=== PATIENT | female | born 1935 | race Caucasian/White ===

== ENCOUNTER 2016-09-02 10:31 | Observation (INO) | payer MEDICARE, BC ==
[~2016-09-02] VITALS: Ht 154.9 cm; Wt 60.0 kg
[2016-09-02] VITALS (10 sets, daily range): BP systolic 154–176; BP diastolic 75–82; PULSE 72–85; RESP 15–20; TEMP 96.5–98.8; O2SAT 93–98
[2016-09-02] MEDS ORDERED: SIMV5TAB3 PO (10:45)
[2016-09-02] MEDS ORDERED: SODIUM CHLORIDE 0.9% FLUSH 5 ML FLUSH IVF PRN (10:45)
[2016-09-02] MEDS ORDERED: LEVO25TA4 PO (10:45)
[2016-09-02] MEDS ORDERED: VENL25TA PO (10:45)
[2016-09-02] MEDS ORDERED: TETANUS/DIPHTHERIA TOXOID ADULT 0.5 ML VIAL IM ONE (10:45)
[2016-09-02] MEDS ORDERED: ASPI81CH CHEW (10:45)
[2016-09-02 11:00] LABS: AUTOMATED NEUTROPHIL # 4.1 TH/MM3 (1.8-7.7); BASOPHIL % 0.2 % (0.0-2.0); EOSINOPHIL % 0.3 % (0.0-4.0); HEMATOCRIT 33.8 % (35.0-46.0); HEMO FLAGS DIFF FINAL; LYMPH % 25.4 % (9.0-44.0); LYMPHOCYTE # 1.6 TH/MM3 (1.0-4.8); MEAN CELL VOLUME 83.8 FL (80.0-100.0); MEAN CORPUSCULAR HEMOGLOBIN 27.3 PG (27.0-34.0); MEAN CORPUSCULAR HGB CONC 32.5 % (32.0-36.0); MONO % 11.2 % (0.0-8.0); NEUT % 62.9 % (16.0-70.0); PLATELET COUNT 213 TH/MM3 (150-450); RED BLOOD COUNT 4.03 MIL/MM3 (4.00-5.30); RED CELL DISTRIBUTION WIDTH 14.4 % (11.6-17.2); WHITE BLOOD COUNT 6.5 TH/MM3 (4.0-11.0)
--- NOTE | 2016-09-02 11:06 | PD ---
HPI Chief Complaint: Fall Time Seen by Provider: 10:34 Travel History International Travel<30 days: No Contact w/Intl Traveler<30days: No Traveled to known affect area: No History of Present Illness HPI Is an 81-year-old female presents emergency department after slip and fall at home. Patient states she lost her balance falling backwards impacting the posterior aspect of her head. She is also complaining of chest pain as well as low back pain. She went to an urgent care facility where she had an EKG performed which was told her as normal. She presented here for further evaluation at the insistence of that physician. She denies any loss of consciousness. Endorses mild headache, no nausea no vomiting no visual changes no focal weakness. PFSH Past Medical History Anxiety: Yes Depression: Yes Diminished Hearing: No Thyroid Disease: Yes Past Surgical History Surgical History: No Previous Surgery Social History Alcohol Use: No Tobacco Use: No Substance Use: No Allergies-Medications (Allergen,Severity, Reaction): Coded Allergies: No Known Allergies (Unverified , 09/02/16) Reported Meds & Prescriptions Reported Meds & Active Scripts Active Reported Simvastatin 5 Mg Tab 5 Mg PO DAILY Aspirin 81 Mg Chew 81 Mg CHEW DAILY Effexor (Venlafaxine HCl) 25 Mg Tab 25 Mg PO Q12H Levothyroxine (Levothyroxine Sodium) 25 Mcg Tab 25 Mcg PO DAILY Review of Systems Except as stated in HPI: all other systems reviewed are Neg Physical Exam Narrative GENERAL: WD/WN in nad SKIN: Warm and dry. HEAD: No steel's sign no racoons eyes. There is abrasiion and hematoma of the posterior scalp. Normocephalic. EYES: Pupils equal and round. No scleral icterus. No injection or drainage. ENT: No nasal bleeding or discharge. Mucous membranes pink and moist. NECK: Trachea midline. No JVD. CARDIOVASCULAR: Regular rate and rhythm. 2+ bilaterally equal bulses x 4 ext. RESPIRATORY: No accessory muscle use. Clear to auscultation. Breath sounds equal bilaterally. GASTROINTESTINAL: Abdomen soft, non-tender, nondistended. Hepatic and splenic margins not palpable. MUSCULOSKELETAL: Extremities without clubbing, cyanosis, or edema. No obvious deformities. NEUROLOGICAL: Awake and alert. No obvious cranial nerve deficits. Motor grossly within normal limits. Five out of 5 muscle strength in the arms and legs. Normal speech. PSYCHIATRIC: Appropriate mood and affect; insight and judgment normal. Data Data Last Documented VS Vital Signs Date Time Temp Pulse Resp B/P Pulse Ox O2 Delivery O2 Flow Rate FiO2 09/02/16 12:28 76 16 163/75 94 Room Air 09/02/16 10:31 98.2 Orders Electrocardiogram (09/02/16 10:42) Ckmb (Isoenzyme) Profile (09/02/16 10:42) Complete Blood Count With Diff (09/02/16 10:42) Comprehensive Metabolic Panel (09/02/16 10:42) Magnesium (Mg) (09/02/16 10:42) Prothrombin Time / Inr (Pt) (09/02/16 10:42) Act Partial Throm Time (Ptt) (09/02/16 10:42) Troponin I (09/02/16 10:42) Chest, Single Ap (09/02/16 10:42) Ecg Monitoring (09/02/16 10:42) Bilateral Bp Monitoring (09/02/16 10:42) Iv Access Insert/Monitor (09/02/16 10:42) Oximetry (09/02/16 10:42) Oxygen Administration (09/02/16 10:42) Sodium Chloride 0.9% Flush (Ns Flush) (09/02/16 10:45) Ct Brain W/O Iv Contrast(Rout) (09/02/16 ) Ct Cerv Spine W/O Contrast (09/02/16 ) Ct Lumb Spine W/O Contrast (09/02/16 ) Tetanus/Diphtheria Tox Adult (Tetanus/Di (09/02/16 10:45) CKMB (09/02/16 10:45) CKMB% (09/02/16 10:45) Spine,Cervical-Flex & Ext Only (09/02/16 ) Aspirin Chew (Aspirin Chew) (09/02/16 13:15) Admit Order (Ed Use Only) (09/02/16 ) Labs Laboratory Tests Test 09/02/16 10:45 White Blood Count 6.5 TH/MM3 Red Blood Count 4.03 MIL/MM3 Hemoglobin 11.0 GM/DL Hematocrit 33.8 % Mean Corpuscular Volume 83.8 FL Mean Corpuscular Hemoglobin 27.3 PG Mean Corpuscular Hemoglobin 32.5 % Concent Red Cell Distribution Width 14.4 % Platelet Count 213 TH/MM3 Mean Platelet Volume 6.8 FL Neutrophils (%) (Auto) 62.9 % Lymphocytes (%) (Auto) 25.4 % Monocytes (%) (Auto) 11.2 % Eosinophils (%) (Auto) 0.3 % Basophils (%) (Auto) 0.2 % Neutrophils # (Auto) 4.1 TH/MM3 Lymphocytes # (Auto) 1.6 TH/MM3 Monocytes # (Auto) 0.7 TH/MM3 Eosinophils # (Auto) 0.0 TH/MM3 Basophils # (Auto) 0.0 TH/MM3 CBC Comment DIFF FINAL Differential Comment Prothrombin Time 11.2 SEC Prothromb Time International 1.0 RATIO Ratio Activated Partial 25.7 SEC Thromboplast Time Sodium Level 132 MEQ/L Potassium Level 3.8 MEQ/L Chloride Level 96 MEQ/L Carbon Dioxide Level 28.9 MEQ/L Anion Gap 7 MEQ/L Blood Urea Nitrogen 9 MG/DL Creatinine 0.67 MG/DL Estimat Glomerular Filtration 84 ML/MIN Rate Random Glucose 85 MG/DL Calcium Level 8.5 MG/DL Magnesium Level 2.0 MG/DL Total Bilirubin 0.2 MG/DL Aspartate Amino Transf 33 U/L (AST/SGOT) Alanine Aminotransferase 30 U/L (ALT/SGPT) Alkaline Phosphatase 80 U/L Total Creatine Kinase 588 U/L Creatine Kinase MB 25.2 NG/ML Creatine Kinase MB % 4.3 % Troponin I LESS THAN 0.02 NG/ML Total Protein 6.6 GM/DL Albumin 3.4 GM/DL MDM Medical Decision Making Medical Screen Exam Complete: Yes Emergency Medical Condition: Yes Interpretation(s) EKG shows normal sinus rhythm with normal axis and normal R-wave progression. Left atrial enlargement, no concerning ST T changes, intervals within normal limits. This borderline EKG. Differential Diagnosis Fall, syncope, chest pain, chest injury, rhabdomyolysis. Narrative Course Patient roomed in ED, quite atypical CP. Ct head negative. TD given. Her CKMB % is slightly elevated. Discussed with her and she is agreeable for obs for cardiac trending at a minimum. Further management by inpatient team. Last 24 hours Impressions Chest X-Ray 09/02/16 1042 Signed Impressions: Service Date/Time: Friday, September 02, 2016 10:52 - CONCLUSION: Basilar hypoaeration with mild right basilar airspace disease. No other significant abnormality. Nomi Tyson MD Lumbar Spine CT 09/02/16 0000 Signed Impressions: Service Date/Time: Friday, September 02, 2016 11:17 - CONCLUSION: 1. Mild sclerosis at the L4 vertebral body with minimal loss of height which may suggest some underlying compression. An acute fracture is not seen. Significant loss of height is not clearly seen. 2. Degenerative change throughout the lumbar spine as described above. This is asymmetric being worse on the left at the upper and mid lumbar spine worse on the right at the lower lumbar spine. Patient does have a prominent dextrocurvature of the lumbar spine with some compensatory mild levocurvature of the lower lumbar spine. Mike Ruiz MD Head CT 09/02/16 0000 Signed Impressions: Service Date/Time: Friday, September 02, 2016 11:11 - CONCLUSION: 1. No intracranial abnormalities seen. 2. Posterior scalp injury. Mike Ruiz MD Cervical Spine X-Ray 09/02/16 0000 Signed Impressions: Service Date/Time: Friday, September 02, 2016 12:17 - CONCLUSION: Degenerative change throughout. No abnormal motion is seen. Mike Ruiz MD Cervical Spine CT 09/02/16 0000 Signed Impressions: Service Date/Time: Friday, September 02, 2016 11:11 - CONCLUSION: Extensive degenerative changes. Spinal stenosis is moderate at C4-C5 level. There is no evidence for fracture. Given the amount of degenerative changes and reversal of subluxation controlled flexion extension films could be used to exclude motion. Daniel Cabello MD FACR Diagnosis Primary Impression: Chest pain Qualified Code: R07.89 - Other chest pain Additional Impressions: Closed head injury Back pain Admitting Information Admitting Physician Requests: Observation Condition: Stable Prince Samuel MD Sep 02, 2016 11:06
[2016-09-02 11:10] LABS: APTT (PATIENT) 25.7 SEC (24.3-30.1); PROTHROMBIN TIME - PATIENT 11.2 SEC (9.8-11.6)
--- NOTE | 2016-09-02 11:13 | RADRPT ---
EXAM DATE/TIME: 09/02/2016 10:52 [facility] COMPARISON: No previous studies available for comparison. INDICATIONS : Chest Pain MEDICAL HISTORY : None. SURGICAL HISTORY : None. ENCOUNTER: Initial ACUITY: 1 day PAIN SCORE: 5/10 LOCATION: Bilateral chest FINDINGS: Lungs are hypoaerated. There is minimal airspace disease in the right base. There is no significant c onsolidation. Heart and mediastinal structures are unremarkable. CONCLUSION: Basilar hypoaeration with mild right basilar airspace disease. No other significant abnormality. Nomi Tyson MD on September 02, 2016 at 11:11 Board Certified Radiologist. This report was verified electronically.
[2016-09-02 11:21] LABS: ANION GAP 7 MEQ/L (5-15); AST (GOT) 33 U/L (15-37); BICARBONATE 28.9 MEQ/L (21.0-32.0); BLOOD UREA NITROGEN 9 MG/DL (7-18); CHLORIDE 96 MEQ/L (98-107); GLOMERULAR FILTRATION RATE 84 ML/MIN (>89); POTASSIUM 3.8 MEQ/L (3.5-5.1); SODIUM (NA) 132 MEQ/L (136-145)
[2016-09-02 11:26] LABS: ALKALINE PHOSPHATASE 80 U/L (45-117); ALT (GPT) 30 U/L (10-53); CREATINE KINASE 588 U/L (26-192); TOTAL BILIRUBIN ADULT 0.2 MG/DL (0.2-1.0)
--- NOTE | 2016-09-02 11:34 | RADRPT ---
EXAM DATE/TIME: 09/02/2016 11:11 [facility] COMPARISON: No previous studies available for comparison. INDICATIONS : Fall this morning. Laceration to posterior head. RADIATION DOSE: 39.34 CTDIvol (mGy) MEDICAL HISTORY : Thyroid disease. SURGICAL HISTORY : None. ENCOUNTER: Initial ACUITY: 1 day PAIN SCALE: 6/10 LOCATION: cranial TECHNIQUE: Multiple contiguous axial images were obtained of the head. Using automated exposure control and adj ustment of the mA and/or kV according to patient size, radiation dose was kept as low as reasonably a chievable to obtain optimal diagnostic quality images. FINDINGS: CEREBRUM: The ventricles are normal for age. No evidence of midline shift, mass lesion, hemorrhage or acute in farction. No extra-axial fluid collections are seen. POSTERIOR FOSSA: The cerebellum and brainstem are intact. The 4th ventricle is midline. The cerebellopontine angle i s unremarkable. EXTRACRANIAL: The visualized portion of the orbits is intact. There is soft tissue swelling of the posterior upper scalp. SKULL: The calvaria is intact. No evidence of skull fracture. CONCLUSION: 1. No intracranial abnormalities seen. 2. Posterior scalp injury. Mike Ruiz MD on September 02, 2016 at 11:31 Board Certified Radiologist. This report was verified electronically.
[2016-09-02 11:38] LABS: CKMB 25.2 NG/ML (0.5-3.6)
--- NOTE | 2016-09-02 11:47 | RADRPT ---
EXAM DATE/TIME: 09/02/2016 11:11 [facility] COMPARISON: No previous studies available for comparison. INDICATIONS: Fall this morning. Laceration to posterior head. RADIATION DOSE: 20.38 CTDIvol (mGy) MEDICAL HISTORY: Thyroid disease. SURGICAL HISTORY: None. ENCOUNTER: Initial ACUITY: 1 day PAIN SCALE: 1/10 LOCATION: Neck TECHNIQUE: Volumetric scanning of the cervical spine was performed. Multiplanar reconstructions in the sagittal, coronal and oblique axial planes were performed. Using automated exposure control and adjustment o f the mA and/or kV according to patient size, radiation dose was kept as low as reasonably achievable to obtain optimal diagnostic quality images. FINDINGS: There is straightening of the normal cervical lordosis. Alignment is otherwise anatomic. C1 and C2 are intact. C2-C3: The bony spinal canal is normal in size. No evidence of disc bulge or herniation. The neural forami na are bilaterally patent. C3-C4: There is some moderate uncinate ridging at C3-C4 with bilateral neural foramina encroachment worse on the left than the right. C4-C5: There is moderate uncinate ridging present with bilateral neural foramina encroachment. There is mod erate spinal stenosis. C5-C6: Moderate spinal stenosis is evident. There is moderate right-sided neural foramina encroachment. C6-C7: Mild uncinate ridging is present with mild bilateral neural foramina encroachment. C7-T1: Mild uncinate ridging is present without spinal stenoses. CONCLUSION: Extensive degenerative changes. Spinal stenosis is moderate at C4-C5 level. There is no evidence fo r fracture. Given the amount of degenerative changes and reversal of subluxation controlled flexion extension joanne ms could be used to exclude motion. Daniel Cabello MD FACR on September 02, 2016 at 11:39 Board Certified Radiologist. This report was verified electronically.
--- NOTE | 2016-09-02 12:22 | RADRPT ---
EXAM DATE/TIME: 09/02/2016 12:17 [facility] COMPARISON: No previous studies available for comparison. INDICATIONS : Neck pain from fall. MEDICAL HISTORY : None. SURGICAL HISTORY : None. ENCOUNTER: Initial ACUITY: 1 day PAIN SCORE: 6/10 LOCATION: Bilateral lower neck region. FINDINGS: Flexion and extension views of the cervical spine were performed. The alignment of the cervical vert ebral bodies is maintained in flexion and extension and there is no evidence of subluxation. The pre vertebral soft tissues are normal in thickness. There is disc space narrowing at the C3-C4 through C7 -T1 levels. CONCLUSION: Degenerative change throughout. No abnormal motion is seen. Mike Ruiz MD on September 02, 2016 at 12:18 Board Certified Radiologist. This report was verified electronically.
--- NOTE | 2016-09-02 12:32 | RADRPT ---
EXAM DATE/TIME: 09/02/2016 11:17 [facility] COMPARISON: No previous studies available for comparison. INDICATIONS: Fall this morning. Complains of lower back pain. RADIATION DOSE: 35.86 CTDIvol (mGy) MEDICAL HISTORY: Thyroid disease. SURGICAL HISTORY: None. ENCOUNTER: Initial ACUITY: 1 day PAIN SCALE: 6/10 LOCATION: Lumbar TECHNIQUE: Volumetric scanning of the lumbar spine was performed. Multiplanar reconstructions in the sagittal, coronal and oblique axial planes were performed. Using automated exposure control and adjustment of the mA and/or kV according to patient size, radiation dose was kept as low as reasonably achievable t o obtain optimal diagnostic quality images. FINDINGS: VERTEBRAE: There is sclerosis seen at the L4 vertebral body. There is minimal loss of height. An actual acute fracture line is not clearly seen. Some degree of compression however may be present. The remaining lumbar vertebral bodies are normal in height. There is asymmetric sclerosis seen at the left side o f the upper lumbar spine and at the right side of the lower lumbar spine secondary to a prominent dex trocurvature of the thoracic spine and compensatory levocurvature of the lower lumbar spine. T11-T12: There is asymmetric disc bulge being worse on the right causing a mild impression on the anterior rig ht side of the thecal sac. The disc space is narrowed. There is a vacuum phenomenon. There is some narrowing of the right neural foramina secondary to the asymmetric disc bulge. T12-L1: Disc space is narrowed, there is a vacuum phenomenon. A significant impression on the thecal sac is not seen. The neural foramina are grossly intact. L1-L2: Disc space is narrowed, there is a vacuum phenomenon. A significant impression on the thecal sac is not seen. There is moderate facet hypertrophy especially on the left. There is some narrowing of th e left neural foramina. The right neural foramina appears patent. L2-L3: Disc space is narrowed, there is mild diffuse disc bulge. There is moderate facet hypertrophy. Ther e is some narrowing of the left neural foramina. The disc bulge and hypertrophic change is asymmetri c and worse on the left. L3-L4: Disc space is narrowed, there is a vacuum phenomenon. There is mild diffuse disc bulge. There is mo derate facet hypertrophy. The neural foramina are grossly intact. L4-L5: Disc space is narrowed, there is a vacuum phenomenon. There is mild diffuse disc bulge. There is mo derate to severe facet hypertrophy. The facet hypertrophy does cause narrowing of the right lateral recess region and right neural foramina. L5-S1: Disc space is narrowed, there is a vacuum phenomenon. There is mild diffuse disc bulge. There is se bambi facet hypertrophy being worse on the right. There is narrowing of the right neural foramina. T he left neural foramina appears patent. CONCLUSION: 1. Mild sclerosis at the L4 vertebral body with minimal loss of height which may suggest some underl adrian compression. An acute fracture is not seen. Significant loss of height is not clearly seen. 2. Degenerative change throughout the lumbar spine as described above. This is asymmetric being wor se on the left at the upper and mid lumbar spine worse on the right at the lower lumbar spine. Patie nt does have a prominent dextrocurvature of the lumbar spine with some compensatory mild levocurvatur e of the lower lumbar spine. Mike Ruiz MD on September 02, 2016 at 12:04 Board Certified Radiologist. This report was verified electronically.
[2016-09-02] MEDS ORDERED: ASPIRIN 81 MG CHEW TAB CHEW ONE (13:15)
--- NOTE | 2016-09-02 14:07 | HHI.HP ---
[facility] Service Family Medicine Primary Care Physician Constanza (Jose Ramon) MD Shadi Admission Diagnosis CP/Fall Diagnoses: International Travel<30 Days: No Contact w/Intl Traveler<30days: No Known Affected Area: No History of Present Illness 81 yo F presents to the ED with a fall at home this morning. States that she was sleeping normally this morning when she woke up at 4:30 this morning and got up to use the bathroom. She states that she walked several steps to the door of her bedroom and lost her balance and fell backwards and hit her head on the ground. She attributes the fall to several factors: that she was wearing slippers that are too big, the room was dark, and she was turning away from the door when she fell. She hit the posterior aspect of her head, her right arm, and the right side of her face on the ground and had some bleeding from the back of the head. The bleeding did not stop and she then went to the Urgent Care at around 8 am. She endorses some anterior chest discomfort with deep breathing. This started when she arrived to the hospital and did not have this prior to falling. She also endorses a stiff upper back. She states that she sometimes feels dizzy when she gets up from bed but did not feel dizzy this morning. She denies loss of consciousness, denies palpitations, denies headache. She has had previous falls in the past - last month she fell while taking out the trash and again about 6 months ago when bending down to unplug a tablet. At that time, she fell backwards as well. She has had "issues" with her balance recently but does not use any assistive devices to ambulate. She was seen at her PCP office 3 days ago and was told she had a UTI due to urinary frequency with small amount of urine. She was given a Rx for an antibiotic, took it to her pharmacy ([facility] on [address]) but never picked up the prescription. She denies dysuria or urinary frequency at this time. (Shauna Yen MD R1) Review of Systems Constitutional: DENIES: Fatigue Eyes: DENIES: Blurred vision, Double Vision Respiratory: COMPLAINS OF: Shortness of breath, DENIES: Apneas, Cough, Wheezing, Sputum production Cardiovascular: COMPLAINS OF: Chest pain, DENIES: Palpitations, Syncope, Dyspnea on Exertion Gastrointestinal: DENIES: Abdominal pain, Black stools, Bloody stools, Constipation, Diarrhea, Nausea, Vomiting, Difficulty Swallowing Genitourinary: COMPLAINS OF: Urinary frequency, Urgency Musculoskeletal: COMPLAINS OF: Stiffness, Back pain, DENIES: Joint pain, Muscle aches, Neck pain Integumentary: DENIES: Rash Hematologic/lymphatic: DENIES: Bruising Neurologic: COMPLAINS OF: Poor Balance, DENIES: Headache Psychiatric: COMPLAINS OF: Anxiety, DENIES: Confusion, Depression (Shauna Yen MD R1) Past Family Social History Past Medical History Hypothyroid Hyperlipidemia Depression Osteoarthritis Seasonal allergies Schizophrenia (per the ) GERD Past Surgical History Umbilical hernia repair - Reported Medications Reported Meds & Active Scripts Active Reported Simvastatin 5 Mg Tab 5 Mg PO DAILY Aspirin 81 Mg Chew 81 Mg CHEW DAILY Effexor (Venlafaxine HCl) 25 Mg Tab 25 Mg PO Q12H Levothyroxine (Levothyroxine Sodium) 25 Mcg Tab 25 Mcg PO DAILY (Shauna Yen MD R1) Allergies: Coded Allergies: No Known Allergies (Unverified , 09/02/16) Family History Mother - from TB at age 29 Father - from [place] in 1983 (age 67) Social History Alcohol: denies - former wine drinker, quit due to medications Tobacco: denies - former smoker quit 1993 (former 1ppd x "long time") Illicit drugs: jensen Lives at home with her - Condo - ground floor with 1 stair She has been independent with her ADLs Dr. Dumont - psychiatry music library assistant Dr. Bandar Hsu - primary care CODE STATUS: Do Not Resuscitate - Do Not Intubate Has Living Will (Shauna Yen MD R1) Physical Exam Vital Signs Vital Signs Date Time Temp Pulse Resp B/P Pulse Ox O2 Delivery O2 Flow Rate FiO2 09/02/16 12:28 76 16 163/75 94 Room Air 09/02/16 10:41 94 Room Air 09/02/16 10:41 94 Room Air 09/02/16 10:41 78 16 94 Room Air 09/02/16 10:31 98.2 72 15 176/79 94 Physical Exam GENERAL: Pleasant, elderly appearing female in no obvious distress, eating upon entry to room. SKIN: Small amount of scaling/dry skin between toes. No obvious rashes. Ecchymosis in large patch noted on posterior forearm without skin breakdown. HEAD: Right posterior parietal area with small laceration (3mm) with mild edema , no obvious step-off or crepitus. Bruise 0.5cm noted on left zygomatic arch- nontender with no evidence of underlying fracture. EYES: Pupils equal round and reactive. Scleral clear, no subconjunctival hemorrhage. Extraocular motions intact. No scleral icterus. No injection or drainage. NECK: Trachea midline. No JVD or lymphadenopathy. Supple, nontender, no meningeal signs. CARDIOVASCULAR: Regular rate and rhythm without murmurs, gallops, or rubs. RESPIRATORY: Clear to auscultation. Breath sounds equal bilaterally. No wheezes , rales, or rhonchi. GASTROINTESTINAL: Abdomen soft, non-tender, nondistended. No hepato-splenomegaly , or palpable masses. No guarding. MUSCULOSKELETAL: Extremities without clubbing, cyanosis, or edema. No lower extremity edema noted. No calf tenderness. Negative Homans sign bilaterally. NEUROLOGICAL: Awake and alert. Cranial nerves II through XII intact. Motor and sensory grossly within normal limits. Five out of 5 muscle strength in all muscle groups. Normal speech. Was able to rise and walk from wheelchair without assistance. Laboratory Laboratory Tests Test 09/02/16 10:45 White Blood Count 6.5 Red Blood Count 4.03 Hemoglobin 11.0 Hematocrit 33.8 Mean Corpuscular Volume 83.8 Mean Corpuscular Hemoglobin 27.3 Mean Corpuscular Hemoglobin 32.5 Concent Red Cell Distribution Width 14.4 Platelet Count 213 Mean Platelet Volume 6.8 Neutrophils (%) (Auto) 62.9 Lymphocytes (%) (Auto) 25.4 Monocytes (%) (Auto) 11.2 Eosinophils (%) (Auto) 0.3 Basophils (%) (Auto) 0.2 Neutrophils # (Auto) 4.1 Lymphocytes # (Auto) 1.6 Monocytes # (Auto) 0.7 Eosinophils # (Auto) 0.0 Basophils # (Auto) 0.0 CBC Comment DIFF FINAL Differential Comment Prothrombin Time 11.2 Prothromb Time International 1.0 Ratio Activated Partial 25.7 Thromboplast Time Sodium Level 132 Potassium Level 3.8 Chloride Level 96 Carbon Dioxide Level 28.9 Anion Gap 7 Blood Urea Nitrogen 9 Creatinine 0.67 Estimat Glomerular Filtration 84 Rate Random Glucose 85 Calcium Level 8.5 Magnesium Level 2.0 Total Bilirubin 0.2 Aspartate Amino Transf 33 (AST/SGOT) Alanine Aminotransferase 30 (ALT/SGPT) Alkaline Phosphatase 80 Total Creatine Kinase 588 Creatine Kinase MB 25.2 Creatine Kinase MB % 4.3 Troponin I LESS THAN 0.02 Total Protein 6.6 Albumin 3.4 (Shauna Yen MD R1) Result Diagram: 09/02/16 1045 09/02/16 1045 Imaging Last 72 hours Impressions Chest X-Ray 09/02/16 1042 Signed Impressions: Service Date/Time: Friday, September 02, 2016 10:52 - CONCLUSION: Basilar hypoaeration with mild right basilar airspace disease. No other significant abnormality. Nomi Tyson MD Head CT 09/02/16 0000 Signed Impressions: Service Date/Time: Friday, September 02, 2016 11:11 - CONCLUSION: 1. No intracranial abnormalities seen. 2. Posterior scalp injury. Mike Ruiz MD Cervical Spine X-Ray 09/02/16 0000 Signed Impressions: Service Date/Time: Friday, September 02, 2016 12:17 - CONCLUSION: Degenerative change throughout. No abnormal motion is seen. Mike Ruiz MD Cervical Spine CT 09/02/16 0000 Signed Impressions: Service Date/Time: Friday, September 02, 2016 11:11 - CONCLUSION: Extensive degenerative changes. Spinal stenosis is moderate at C4-C5 level. There is no evidence for fracture. Given the amount of degenerative changes and reversal of subluxation controlled flexion extension films could be used to exclude motion. Daniel Cabello MD FACR (Shauna Yen MD R1) Assessment and Plan Assessment and Plan 81-year-old female with a history of hypothyroidism, hyperlipidemia, depression , ostial arthritis, and GERD who presents to the after a fall. Possible UTI. She will be admitted to observation for monitoring and further workup. Code Status DNR, confirmed verbally 09/02/16 Discussed Condition With Seen and discussed with Dr. Glenroy Fortune and Dr. Alok Swartz (Shauna Yen MD R1) Attending Attestation THIS CASE WAS DISCUSSED WITH THE RESIDENT PHYSICIAN. I HAVE REVIEWED THE RECORD AND AGREE WITH THE ABOVE NOTE AND PLAN OF CARE WAS DISCUSSED. I HAVE AUTHORIZED THE ORDER FOR PLACEMENT IN OUT-PATIENT OBSERVATION STATUS. (Glenroy Fortune MD) Problem List: (1) Chest pain Status: Acute Plan: Patient with chest pain with deep inspiration after a fall. She notes no chest pain with exertion at baseline. Chest pain is likely related to fall, however, given age and unknown etiology of fall at this time we'll proceed with ACS rule out. -Aspirin 1 in ED (324 mg chew) -Initial troponin negative, however, CK is elevated. This may be related to fall. -EKG showing normal sinus rhythm without evidence of ischemic changes -Troponins, CK, CK-MB do at 1500 and 11 PM tonight -Telemetry -Monitor for for worsening chest pain, workup as indicated (2) Fall at home Status: Acute Plan: Elderly female, at baseline independent with ADLs and requiring no assistive devices for ambulation. Fall is likely mechanical. However, has had three falls in 6 months. Her home is one story with 2 stairs outside. Neuro exam nonfocal and overall unremarkable. Patient's mental status is normal. Patient did mention possible UTI diagnosed this week at PCPs office. -Head injury not actively bleeding, basic wound care is appropriate. Tdap was given in ED -CT head unremarkable at admission -Chest x-ray unremarkable -Cervical spine CT and lumbar spine CT showing only chronic degenerative changes -Obtain UA to evaluate for possible UTI as cause of non-mechanical fall. We'll order TSH, B12, vitamin D -Injuries do not require any acute management. Monitor bruising and head injury -PT to evaluate -Case management consulted -Pain management with Tylenol as needed (3) Hyperlipidemia Status: Chronic Plan: Chronic. On pravastatin 10 mg daily, will continue. (4) Schizophrenia Status: Chronic Plan: Per patient's . Patient denies. Home meds include only venlafaxine at 25 mg PO every 12 hours. No evidence of schizophrenia upon encounter today. -Monitor mental status. (5) GERD (gastroesophageal reflux disease) Status: Chronic Plan: Chronic. Not on antireflux meds. Can be a source of chest pain, however, not likely etiology at this time. Will monitor. (6) Depression with anxiety Status: Acute Plan: Continue home dose Effexor 25 mg every 12 hours by mouth (7) Fluids/Electrolytes/Nutrition/Prophylaxis Status: Acute Plan: Fluids: Tolerating PO Electrolytes: Monitor and replete as needed Nutrition: Regular diet DVT Prophylaxis: SCDs. GI Prophylaxis: [steroids/ventilator/GIB/burn] (Shauna Yen MD R1) Problem Qualifiers (1) Chest pain: Qualified Code: R07.89 - Other chest pain Shauna Yen MD R1 Sep 02, 2016 14:07 Glenroy Fortune MD Sep 02, 2016 21:57
[2016-09-02] MEDS ORDERED: NALOXONE HCL 0.4 MG/ML AMP IV PRN (14:45)
[2016-09-02] MEDS ORDERED: SODIUM CHLORIDE 0.9% FLUSH 5 ML FLUSH FLUSH PRN (14:45)
[2016-09-02] MEDS ORDERED: ACETAMINOPHEN 325 MG TAB PO PRN (15:00)
[2016-09-02] MEDS: VENLAFAXINE HCL 25 MG TAB PO SCH (16:32)
[2016-09-02 17:21] LABS: BLOOD, URINE NEG (NEG); COMMENT (UR) CULT NOT INDICATED; CULTURE IF INDICATED CULT NOT INDICATED; GLUCOSE,URINE NEG (NEG); KETONE, URINE NEG (NEG); NITRITE,URINE NEG (NEG); SQUAMOUS EPITHELIAL CELL URINE <1 /hpf (0-5); URINE COLOR LIGHT-YELLOW (YELLW/STRAW)
[2016-09-02 17:51] LABS: CREATINE KINASE 450 U/L (26-192)
--- NOTE | 2016-09-02 18:02 | EKG ---
Date Performed: 09/02/2016 Time Performed: 08:42:06 PTAGE: 81 years EKG: BASELINE ARTIFACT PRESENT. Sinus rhythm POSSIBLE LEFT ATRIAL ENLARGEMENT BORDERLINE ECG INTERPRETATION BASED ON A DEFAULT AGE OF 40 YEARS NO PREVIOUS TRACING DOCTOR: Ezekiel Smart Interpretating Date/Time 09/02/2016 18:00:39
[2016-09-02 18:03] LABS: CKMB 15.7 NG/ML (0.5-3.6)
--- NOTE | 2016-09-02 21:52 | EKG ---
Date Performed: 09/02/2016 Time Performed: 16:09:07 PTAGE: 81 years EKG: Sinus rhythm NORMAL ECG NO SIGNIFICANT CHANGE FROM PRIOR ELECTROCARDIOGRAM. PREVIOUS TRACING : 09/02/2016 08.42 DOCTOR: Ezekiel Smart Interpretating Date/Time 09/02/2016 21:51:36
--- NOTE | 2016-09-02 21:56 | HHI.HP ---
[facility] Service Family Medicine Primary Care Physician Constanza (Jose Ramon) MD Shadi Admission Diagnosis CP/Fall Diagnoses: (1) Chest pain (2) Fall at home (3) Hyperlipidemia (4) Schizophrenia (5) GERD (gastroesophageal reflux disease) (6) Depression with anxiety (7) Fluids/Electrolytes/Nutrition/Prophylaxis International Travel<30 Days: No Contact w/Intl Traveler<30days: No Known Affected Area: No History of Present Illness 81 yo F presents to the ED with a fall at home this morning. States that she was sleeping normally this morning when she woke up at 4:30 this morning and got up to use the bathroom. She states that she walked several steps to the door of her bedroom and lost her balance and fell backwards and hit her head on the ground. She attributes the fall to several factors: that she was wearing slippers that are too big, the room was dark, and she was turning away from the door when she fell. She hit the posterior aspect of her head, her right arm, and the right side of her face on the ground and had some bleeding from the back of the head. The bleeding did not stop and she then went to the Urgent Care at around 8 am. She endorses some anterior chest discomfort with deep breathing. This started when she arrived to the hospital and did not have this prior to falling. She also endorses a stiff upper back. She states that she sometimes feels dizzy when she gets up from bed but did not feel dizzy this morning. She denies loss of consciousness, denies palpitations, denies headache. She has had previous falls in the past - last month she fell while taking out the trash and again about 6 months ago when bending down to unplug a tablet. At that time, she fell backwards as well. She has had "issues" with her balance recently but does not use any assistive devices to ambulate. She was seen at her PCP office 3 days ago and was told she had a UTI due to urinary frequency with small amount of urine. She was given a Rx for an antibiotic, took it to her pharmacy ([facility] on [address]) but never picked up the prescription. She denies dysuria or urinary frequency at this time. Past Family Social History Past Medical History Hypothyroid Hyperlipidemia Depression Osteoarthritis Seasonal allergies Schizophrenia (per the ) GERD Past Surgical History Umbilical hernia repair - Allergies: Coded Allergies: No Known Allergies (Unverified , 09/02/16) Family History Mother - from TB at age 29 Father - from [place] in 1983 (age 67) Social History Alcohol: denies - former wine drinker, quit due to medications Tobacco: denies - former smoker quit 1993 (former 1ppd x "long time") Illicit drugs: denies Lives at home with her - Condo - ground floor with 1 stair She has been independent with her ADLs Dr. Dumont - psychiatry child welfare assistant Dr. Bandar Hsu - primary care CODE STATUS: Do Not Resuscitate - Do Not Intubate Has Living Will Physical Exam Vital Signs Vital Signs Date Time Temp Pulse Resp B/P Pulse Ox O2 Delivery O2 Flow Rate FiO2 09/02/16 19:22 98.8 84 20 154/79 94 09/02/16 18:16 85 09/02/16 17:28 96.5 80 17 157/77 95 09/02/16 15:53 76 19 165/75 95 Room Air 09/02/16 14:50 98 21 09/02/16 12:28 76 16 163/75 94 Room Air 09/02/16 10:41 94 Room Air 09/02/16 10:41 94 Room Air 09/02/16 10:41 78 16 94 Room Air 09/02/16 10:31 98.2 72 15 176/79 94 Physical Exam GENERAL: Pleasant, elderly appearing female in no obvious distress, eating upon entry to room. SKIN: Small amount of scaling/dry skin between toes. No obvious rashes. Ecchymosis in large patch noted on posterior forearm without skin breakdown. HEAD: Right posterior parietal area with small laceration (3mm) with mild edema , no obvious step-off or crepitus. Bruise 0.5cm noted on left zygomatic arch- nontender with no evidence of underlying fracture. EYES: Pupils equal round and reactive. Scleral clear, no subconjunctival hemorrhage. Extraocular motions intact. No scleral icterus. No injection or drainage. NECK: Trachea midline. No JVD or lymphadenopathy. Supple, nontender, no meningeal signs. CARDIOVASCULAR: Regular rate and rhythm without murmurs, gallops, or rubs. RESPIRATORY: Clear to auscultation. Breath sounds equal bilaterally. No wheezes , rales, or rhonchi. MUSCULOSKELETAL: Extremities without clubbing, cyanosis, or edema. No lower extremity edema noted. NEUROLOGICAL: Awake and alert. Cranial nerves II through XII intact. Motor and sensory grossly within normal limits. Five out of 5 muscle strength in all muscle groups. Normal speech. Was able to rise and walk from wheelchair without assistance. Laboratory Laboratory Tests Test 09/02/16 09/02/16 09/02/16 10:45 16:58 17:00 White Blood Count 6.5 Red Blood Count 4.03 Hemoglobin 11.0 Hematocrit 33.8 Mean Corpuscular Volume 83.8 Mean Corpuscular Hemoglobin 27.3 Mean Corpuscular Hemoglobin 32.5 Concent Red Cell Distribution Width 14.4 Platelet Count 213 Mean Platelet Volume 6.8 Neutrophils (%) (Auto) 62.9 Lymphocytes (%) (Auto) 25.4 Monocytes (%) (Auto) 11.2 Eosinophils (%) (Auto) 0.3 Basophils (%) (Auto) 0.2 Neutrophils # (Auto) 4.1 Lymphocytes # (Auto) 1.6 Monocytes # (Auto) 0.7 Eosinophils # (Auto) 0.0 Basophils # (Auto) 0.0 CBC Comment DIFF FINAL Differential Comment Prothrombin Time 11.2 Prothromb Time International 1.0 Ratio Activated Partial 25.7 Thromboplast Time Sodium Level 132 Potassium Level 3.8 Chloride Level 96 Carbon Dioxide Level 28.9 Anion Gap 7 Blood Urea Nitrogen 9 Creatinine 0.67 Estimat Glomerular Filtration 84 Rate Random Glucose 85 Calcium Level 8.5 Magnesium Level 2.0 Total Bilirubin 0.2 Aspartate Amino Transf 33 (AST/SGOT) Alanine Aminotransferase 30 (ALT/SGPT) Alkaline Phosphatase 80 Total Creatine Kinase 588 450 Creatine Kinase MB 25.2 15.7 Creatine Kinase MB % 4.3 3.5 Troponin I LESS THAN 0.02 LESS THAN 0.02 Total Protein 6.6 Albumin 3.4 Urine Color LIGHT-YELLOW Urine Turbidity CLEAR Urine pH 7.0 Urine Specific [place] 1.005 Urine Protein NEG Urine Glucose (UA) NEG Urine Ketones NEG Urine Occult Blood NEG Urine Nitrite NEG Urine Bilirubin NEG Urine Urobilinogen LESS THAN 2.0 Urine Leukocyte Esterase NEG Urine WBC LESS THAN 1 Urine Squamous Epithelial <1 Cells Microscopic Urinalysis Comment CULT NOT INDICATED Vitamin B12 Level 527 Thyroid Stimulating Hormone 0.016 3rd Gen Result Diagram: 09/02/16 1045 09/02/16 1045 Imaging Last 72 hours Impressions Chest X-Ray 09/02/16 1042 Signed Impressions: Service Date/Time: Friday, September 02, 2016 10:52 - CONCLUSION: Basilar hypoaeration with mild right basilar airspace disease. No other significant abnormality. Nomi Tyson MD Head CT 09/02/16 0000 Signed Impressions: Service Date/Time: Friday, September 02, 2016 11:11 - CONCLUSION: 1. No intracranial abnormalities seen. 2. Posterior scalp injury. Mike Ruiz MD Cervical Spine X-Ray 09/02/16 0000 Signed Impressions: Service Date/Time: Friday, September 02, 2016 12:17 - CONCLUSION: Degenerative change throughout. No abnormal motion is seen. Mike Ruiz MD Cervical Spine CT 09/02/16 0000 Signed Impressions: Service Date/Time: Friday, September 02, 2016 11:11 - CONCLUSION: Extensive degenerative changes. Spinal stenosis is moderate at C4-C5 level. There is no evidence for fracture. Given the amount of degenerative changes and reversal of subluxation controlled flexion extension films could be used to exclude motion. Daniel Cabello MD FACR Assessment and Plan Assessment and Plan 81-year-old female with a history of hypothyroidism, hyperlipidemia, depression , ostial arthritis, and GERD who presents to the after a fall. Possible UTI. She will be admitted to observation for monitoring and further workup. Problem List: (1) Chest pain Status: Acute Plan: Chest pain that appears to be musculoskeletal after fall at home -Aspirin 1 in ED (324 mg chew) -ACS rule out with serial troponin -EKG showing normal sinus rhythm without evidence of ischemic changes -Troponins, CK, CK-MB do at 1500 and 11 PM tonight -Telemetry -Monitor for for worsening chest pain, workup as indicated (2) Fall at home Status: Acute Plan: -Head injury not actively bleeding, basic wound care is appropriate. Tdap was given in ED -CT head unremarkable at admission -Chest x-ray unremarkable -Cervical spine CT and lumbar spine CT showing only chronic degenerative changes -Obtain UA to evaluate for possible UTI as cause of non-mechanical fall. We'll order TSH, B12, vitamin D -Injuries do not require any acute management. Monitor bruising and head injury -PT to evaluate -Case management consulted -Pain management with Tylenol as needed (3) Hyperlipidemia Status: Chronic Plan: Chronic. On pravastatin 10 mg daily, will continue. (4) Schizophrenia Status: Chronic Plan: Per patient's . Patient denies. Home meds include only venlafaxine at 25 mg PO every 12 hours. No evidence of schizophrenia upon encounter today. -Monitor mental status. (5) GERD (gastroesophageal reflux disease) Status: Chronic Plan: Chronic. Not on antireflux meds. Can be a source of chest pain, however, not likely etiology at this time. Will monitor. (6) Depression with anxiety Status: Acute Plan: Continue home dose Effexor 25 mg every 12 hours by mouth (7) Fluids/Electrolytes/Nutrition/Prophylaxis Status: Acute Plan: Fluids: Tolerating PO Electrolytes: Monitor and replete as needed Nutrition: Regular diet DVT Prophylaxis: SCDs. GI Prophylaxis: [steroids/ventilator/GIB/burn] Problem Qualifiers (1) Chest pain: Qualified Code: R07.89 - Other chest pain Glenroy Fortune MD Sep 02, 2016 21:56
[2016-09-02] MEDS: SODIUM CHLORIDE 0.9% FLUSH 5 ML FLUSH FLUSH SCH (22:49)
[2016-09-02 23:47] LABS: CREATINE KINASE 398 U/L (26-192)
[2016-09-02 23:59] LABS: CKMB 9.7 NG/ML (0.5-3.6)
[2016-09-03] MEDS: VENLAFAXINE HCL 25 MG TAB PO SCH (03:18)
[2016-09-03 03:35] VITALS: BP 146/57; PULSE 80; O2SAT 90
[2016-09-03] MEDS ORDERED: ACET325T PO (06:43)
--- NOTE | 2016-09-03 06:45 | HHI.DCPOC ---
Discharge Care Plan Diagnosis: (1) Closed head injury (2) Chest pain (3) Fall at home (4) Depression with anxiety (5) Hyperlipidemia (6) GERD (gastroesophageal reflux disease) Goals to Promote Your Health * To prevent worsening of your condition and complications * To maintain your health at the optimal level Directions to Meet Your Goals Take your medications as prescribed Follow your dietary instruction Follow activity as directed Keep your appointments as scheduled Take your immunizations and boosters as scheduled If your symptoms worsen call your PCP, if no PCP go to Urgent Care Center or Emergency Room Smoking is Dangerous to Your Health. Avoid second hand smoke Call the 24-hour hour crisis hotline for domestic abuse at Shauna Yen MD R1 Sep 03, 2016 06:44
[2016-09-03 06:57] LABS: AUTOMATED NEUTROPHIL # 2.7 TH/MM3 (1.8-7.7); BASOPHIL % 0.2 % (0.0-2.0); EOSINOPHIL % 0.7 % (0.0-4.0); HEMATOCRIT 32.6 % (35.0-46.0); HEMO FLAGS DIFF FINAL; LYMPH % 34.4 % (9.0-44.0); LYMPHOCYTE # 1.8 TH/MM3 (1.0-4.8); MEAN CELL VOLUME 83.7 FL (80.0-100.0); MEAN CORPUSCULAR HGB CONC 33.4 % (32.0-36.0); MONO % 12.3 % (0.0-8.0); NEUT % 52.4 % (16.0-70.0); PLATELET COUNT 210 TH/MM3 (150-450); RED CELL DISTRIBUTION WIDTH 13.7 % (11.6-17.2); WHITE BLOOD COUNT 5.2 TH/MM3 (4.0-11.0)
[2016-09-03 07:07] LABS: BICARBONATE 27.6 MEQ/L (21.0-32.0); POTASSIUM 3.7 MEQ/L (3.5-5.1)
--- NOTE | 2016-09-03 07:28 | HHI.FPPN ---
Subjective Remarks Patient with no pain reported. She is walking around [facility] pod, normal gait and appearing to be comfortable. No dizziness or balance issues. She continues to have some chest discomfort with deep inhalation. There were no adverse events overnight. (Maria Isabel Yen MD) Objective Vitals Vital Signs Date Time Temp Pulse Resp B/P Pulse Ox O2 Delivery O2 Flow Rate FiO2 09/03/16 03:35 80 146/57 90 09/02/16 23:14 98.4 72 163/82 93 09/02/16 20:00 76 09/02/16 19:22 98.8 84 20 154/79 94 09/02/16 18:16 85 09/02/16 17:28 96.5 80 17 157/77 95 09/02/16 15:53 76 19 165/75 95 Room Air 09/02/16 14:50 98 21 09/02/16 12:28 76 16 163/75 94 Room Air 09/02/16 10:41 94 Room Air 09/02/16 10:41 94 Room Air 09/02/16 10:41 78 16 94 Room Air 09/02/16 10:31 98.2 72 15 176/79 94 I/O 09/02/16 09/02/16 09/02/16 09/03/16 09/03/16 09/03/16 07:00 15:00 23:00 07:00 15:00 23:00 Intake Total 240 ml Balance 240 ml Intake Oral 240 ml (Maria Isabel Yen MD) Result Diagram: 09/03/16 0537 09/03/16 0537 Objective Remarks GENERAL: Pleasant, elderly appearing female sitting in bedside chair, in no obvious distress. SKIN: Small amount of scaling/dry skin between toes. No obvious rashes. Ecchymosis in large patch noted on posterior forearm without skin breakdown. HEAD: Right posterior parietal area with small laceration (3mm) with mild edema , no obvious step-off or crepitus. Bruise 0.5cm noted on left zygomatic arch- nontender with no evidence of underlying fracture. EYES: Pupils equal round and reactive. Scleral clear, no subconjunctival hemorrhage. Extraocular motions intact. No scleral icterus. No injection or drainage. NECK: Trachea midline. No JVD or lymphadenopathy. Supple, nontender, no meningeal signs. CARDIOVASCULAR: Regular rate and rhythm without murmurs, gallops, or rubs. RESPIRATORY: Clear to auscultation. Breath sounds equal bilaterally. No wheezes , rales, or rhonchi. GASTROINTESTINAL: Abdomen soft, non-tender, nondistended. No hepato-splenomegaly , or palpable masses. No guarding. MUSCULOSKELETAL: Extremities without clubbing, cyanosis, or edema. No lower extremity edema noted. No calf tenderness. Negative Homans sign bilaterally. NEUROLOGICAL: Awake and alert. Cranial nerves II through XII intact. Motor and sensory grossly within normal limits. Five out of 5 muscle strength in all muscle groups. Normal speech. Normal gait. (Maria Isabel Yen MD) Urinary Catheter: No (Maria Isabel Yen MD) Vascular Central Line Catheter: No (Maria Isabel Yen MD) A/P Assessment and Plan 81-year-old female with a history of hypothyroidism, hyperlipidemia, depression , osteoarthritis, and GERD who presents to the after a fall. She will be admitted to observation for monitoring and further workup. sdw: Maxime Thornton, and Tong Discharge Planning likely dc home today, pending PT assessment (Maria Isabel Yen MD) Attending Attestation Patient examined and case discussed with resident physician I have read the above note and agree with the assessment/plan is discussed with me I was involved in all medical decision making for this patient Glenroy Fortune M.D. (Glenroy Fortune MD) Problem List: (1) Chest pain Status: Acute Plan: Chest pain that appears to be musculoskeletal after fall at home. Since admission, patient pain improved, not requiring pain meds. VSS. -Aspirin 1 in ED (324 mg chew) -ACS rule out negative -EKG showing normal sinus rhythm without evidence of ischemic changes -DC home after PT eval (2) Fall at home Status: Acute Plan: -Head injury not actively bleeding. Tdap was given in ED. CT head unremarkable at admission. Chest x-ray unremarkable. Cervical spine CT and lumbar spine CT showing only chronic degenerative changes. UA negative for UTI. -Basic wound care is appropriate. -B12 wnl -TSH 0.016 in patient on Levothyroxine 25 mcg po daily -Injuries do not require any acute management. Monitor bruising and head injury -PT to evaluate -Case management consulted -Pain management with Tylenol as needed (3) Hypothyroidism Status: Acute Plan: TSH 0.016. Currently taking Levothyroxine 25 mcg daily. Free T4 wnl -Hold Levothyroxine -Follow up with PCP (4) Hyperlipidemia Status: Chronic Plan: Chronic. On pravastatin 10 mg daily, will continue. (5) Schizophrenia Status: Chronic Plan: Per patient's . Patient denies. Home meds include only venlafaxine at 25 mg PO every 12 hours. No evidence of schizophrenia upon encounter today. -continue Venlafaxine (6) GERD (gastroesophageal reflux disease) Status: Chronic Plan: Chronic. Not on antireflux meds. Can be a source of chest pain, however, not likely etiology at this time. (7) Depression with anxiety Status: Chronic Plan: Continue home dose Effexor 25 mg every 12 hours by mouth (8) Fluids/Electrolytes/Nutrition/Prophylaxis Status: Acute Plan: Fluids: Tolerating PO Electrolytes: Monitor and replete as needed Nutrition: Regular diet DVT Prophylaxis: SCDs. (Maria Isabel Yen MD) Problem Qualifiers (1) Chest pain: Qualified Code: R07.89 - Other chest pain (2) Hypothyroidism: Qualified Code: E03.9 - Acquired hypothyroidism Maria Isabel Yen MD Sep 03, 2016 07:28 Glenroy Fortune MD Sep 03, 2016 12:16
[2016-09-03 07:36] VITALS: BP 159/63; PULSE 76; RESP 17; TEMP 98.1; O2SAT 96
[2016-09-03] MEDS ORDERED: LEVOTHYROXINE SODIUM 25 MCG TAB PO SCH (09:00)
[2016-09-03] MEDS ORDERED: ASPIRIN 81 MG CHEW TAB CHEW SCH (09:00)
[2016-09-03] MEDS ORDERED: PRAVASTATIN SOD 10 MG TAB PO SCH (09:00)
--- NOTE | 2016-09-03 09:29 | EKG ---
Date Performed: 09/03/2016 Time Performed: 00:24:01 PTAGE: 81 years EKG: Sinus rhythm POSSIBLE LEFT ATRIAL ENLARGEMENT BORDERLINE ECG No significant change from prior electrocardiogram. PREVIOUS TRACING : 09/02/2016 16.09 DOCTOR: Ezekiel Smart Interpretating Date/Time 09/03/2016 09:27:33
[2016-09-03] MEDS: SODIUM CHLORIDE 0.9% FLUSH 5 ML FLUSH FLUSH SCH (11:00)
[2016-09-03 11:44] VITALS: BP 152/73; PULSE 79; RESP 17; TEMP 98.4; O2SAT 96
--- NOTE | 2016-09-03 12:27 | HHI.FF ---
Face to Face Verification Diagnosis: (1) Fall at home (2) Closed head injury (3) Chest pain Physical Therapy Order: Evaluate and Treat, Improve ambulation I have seen patient Landy Flores on 09/03/16. My clinical findings support the need for the requested home health care services because: Ltd mobility - disease progression Deconditioned w/ increased weakness High risk of falls I certify that my clinical findings support that this patient is homebound because: Unsteady gait/balance Maria Isabel Yen MD Sep 03, 2016 12:27
== END 2016-09-03 14:15 | disposition home or self-care (01) ==
LOC: NEPA 10:31 → NEDA 13:13 → NEPGCP 17:20
PROVIDERS: ADMIT Family Medicine; ATTEND Family Medicine
DX: R07.1 Chest pain on breathing (principal); M54.5 Low back pain; W01.198A Fall on same level from slipping, tripping and stumbling with subsequent striking against other object, initial encounter; Z79.899 Other long term (current) drug therapy; M48.02 Spinal stenosis, cervical region; S09.90XA Unspecified injury of head, initial encounter; R42 Dizziness and giddiness; Z91.81 History of falling; E03.9 Hypothyroidism, unspecified; E78.5 Hyperlipidemia, unspecified; K21.9 Gastro-esophageal reflux disease without esophagitis; Z87.891 Personal history of nicotine dependence; F20.9 Schizophrenia, unspecified; F41.8 Other specified anxiety disorders; Z23 Encounter for immunization
CPT/HCPCS: 70450; 71010; 72040; 72125; 72131; 80048; 80053; 81001; 82550; 82552; 82607; 82652; 83735; 84439; 84443; 84484; 85025; 85610; 85730; 90471; 90714; 93005; 97161; 99285; G0378; G8987; G8988

== ENCOUNTER 2017-06-15 08:27 | Inpatient (IN) | payer MEDICARE, BC ==
[2017-06-15] VITALS (8 sets, daily range): BP systolic 126–167; BP diastolic 63–98; PULSE 78–95; RESP 15–20; TEMP 98.2–99.1; O2SAT 93–97
[~2017-06-15] VITALS: Ht 154.9 cm; Wt 64.9 kg
[~2017-06-15 08:27] MED LIST: ACET325T PO; ASPI-516 CHEW; SIMV5TAB3 PO; VENL25TA PO
--- NOTE | 2017-06-15 09:07 | PD ---
HPI Chief Complaint: General Weakness Time Seen by Provider: 08:47 Travel History International Travel<30 days: No Contact w/Intl Traveler<30days: No Traveled to known affect area: No History of Present Illness HPI 82-year-old female presents by ambulance after the they have responded multiple times to her house for falls over the past week. After they responded again today they advised her to come here to get checked out. She has multiple bruises all over her in varying stages and states that she falls whenever she gets in and out of bed every day. She states that she's hungry and will probably need a assisted living facility. She denies specific complaints from the falls but is a very poor historian because when I ask her again in the next sentence she will say maybe everything hurts. History is significantly limited. PFSH Past Medical History Narrative Medical By records Asthma: No Blood Disorders: No Anxiety: Yes Depression: Yes Heart Rhythm Problems: No Cancer: No Cardiovascular Problems: No High Cholesterol: Yes Chemotherapy: No Chest Pain: No Congestive Heart Failure: No COPD: No Diabetes: No Diminished Hearing: No Endocrine: Yes (HYPOTHYROIDISM) Genitourinary: No Immune Disorder: No Musculoskeletal: No Neurologic: No Psychiatric: No Reproductive: No Respiratory: No Radiation Therapy: No Sleep Apnea: No Thyroid Disease: Yes ?: Not Past Surgical History Surgical History: No Previous Surgery Social History Alcohol Use: No Tobacco Use: No Substance Use: No Allergies-Medications (Allergen,Severity, Reaction): Coded Allergies: No Known Allergies (Verified Adverse Reaction, Unknown, 06/15/17) Reported Meds & Prescriptions Reported Meds & Active Scripts Active Reported Simvastatin 5 Mg Tab 5 Mg PO DAILY Aspirin 81 Mg Chew 81 Mg CHEW DAILY Effexor (Venlafaxine HCl) 25 Mg Tab 25 Mg PO Q12H Review of Systems ROS Limitations: Poor Historian Physical Exam Exam Limitations: Poor Historian Narrative GENERAL: Well-nourished, well-developed patient. SKIN: Warm and dry. HEAD: Normocephalic and atraumatic. EYES: No injection or drainage. ENT: No nasal drainage noted. NECK: Supple, trachea midline. No pain with range of motion in midline CARDIOVASCULAR: Regular rate and rhythm RESPIRATORY: Breath sounds equal bilaterally. No accessory muscle use. GASTROINTESTINAL: Abdomen soft, non-tender, nondistended. BACK: Nontender without obvious deformity in midline, large bruise noted to right posterior shoulder area. NEUROLOGICAL: Awake, moves all extremities and sensory grossly within normal limits. Clear speech. Data Data Last Documented VS Vital Signs Date Time Temp Pulse Resp B/P (MAP) Pulse Ox O2 Delivery O2 Flow Rate FiO2 06/15/17 12:30 82 16 132/70 (90) 96 Room Air 06/15/17 12:30 99.0 Orders Orders Magnesium (Mg) (06/15/17 08:58) Phosphorus (Po4) (06/15/17 08:58) Complete Blood Count With Diff (06/15/17 08:58) Comprehensive Metabolic Panel (06/15/17 08:58) Ckmb (Isoenzyme) Profile (06/15/17 08:58) Troponin I (06/15/17 08:58) Urinalysis - C+S If Indicated (06/15/17 08:58) Act Partial Throm Time (Ptt) (06/15/17 08:58) Prothrombin Time / Inr (Pt) (06/15/17 08:58) Chest, Single Ap (06/15/17 ) Electrocardiogram (06/15/17 ) Iv Access Insert/Monitor (06/15/17 08:58) Ecg Monitoring (06/15/17 08:58) Oximetry (06/15/17 08:58) Influenzae A/B Antigen (06/15/17 08:58) Urine Culture (06/15/17 09:15) Blood Culture (06/15/17 09:51) Ceftriaxone Inj (Rocephin Inj) (06/15/17 10:00) CKMB (06/15/17 09:15) CKMB% (06/15/17 09:15) Ct Brain W/O Iv Contrast(Rout) (06/15/17 ) Aspirin (Aspirin) (06/15/17 13:00) Admit Order (Ed Use Only) (06/15/17 13:00) Labs Laboratory Tests Test 06/15/17 09:15 White Blood Count 7.3 TH/MM3 Red Blood Count 4.48 MIL/MM3 Hemoglobin 13.0 GM/DL Hematocrit 37.7 % Mean Corpuscular Volume 84.2 FL Mean Corpuscular Hemoglobin 29.0 PG Mean Corpuscular Hemoglobin Concent 34.5 % Red Cell Distribution Width 14.3 % Platelet Count 246 TH/MM3 Mean Platelet Volume 7.8 FL Neutrophils (%) (Auto) 68.0 % Lymphocytes (%) (Auto) 17.5 % Monocytes (%) (Auto) 13.6 % Eosinophils (%) (Auto) 0.5 % Basophils (%) (Auto) 0.4 % Neutrophils # (Auto) 5.0 TH/MM3 Lymphocytes # (Auto) 1.3 TH/MM3 Monocytes # (Auto) 1.0 TH/MM3 Eosinophils # (Auto) 0.0 TH/MM3 Basophils # (Auto) 0.0 TH/MM3 CBC Comment DIFF FINAL Differential Comment Prothrombin Time 10.9 SEC Prothromb Time International Ratio 1.1 RATIO Activated Partial Thromboplast Time 23.4 SEC Urine Color LIGHT-YELLOW Urine Turbidity CLEAR Urine pH 6.5 Urine Specific [place] 1.010 Urine Protein 30 mg/dL Urine Glucose (UA) NEG mg/dL Urine Ketones 10 mg/dL Urine Occult Blood SMALL Urine Nitrite NEG Urine Bilirubin NEG Urine Urobilinogen LESS THAN 2.0 MG/DL Urine Leukocyte Esterase SMALL Urine RBC 3 /hpf Urine WBC 13 /hpf Urine Squamous Epithelial Cells 2 /hpf Urine Transitional Epithelial Cells <1 /hpf Urine Bacteria RARE /hpf Urine Hyaline Casts 1 /lpf Urine Mucus FEW /lpf Microscopic Urinalysis Comment CULTURE INDICATED Blood Urea Nitrogen 7 MG/DL Creatinine 0.48 MG/DL Random Glucose 116 MG/DL Total Protein 6.8 GM/DL Albumin 3.2 GM/DL Calcium Level 9.3 MG/DL Phosphorus Level 1.4 MG/DL Magnesium Level 1.7 MG/DL Alkaline Phosphatase 63 U/L Aspartate Amino Transf (AST/SGOT) 89 U/L Alanine Aminotransferase (ALT/SGPT) 67 U/L Total Bilirubin 0.5 MG/DL Sodium Level 114 MEQ/L Potassium Level 3.1 MEQ/L Chloride Level 79 MEQ/L Carbon Dioxide Level 25.0 MEQ/L Anion Gap 10 MEQ/L Estimat Glomerular Filtration Rate 124 ML/MIN Total Creatine Kinase 1263 U/L Creatine Kinase MB 25.1 NG/ML Creatine Kinase MB % 2.0 % Troponin I 0.77 NG/ML MDM Medical Decision Making Medical Screen Exam Complete: Yes Emergency Medical Condition: Yes Medical Record Reviewed: Yes (past history confirmed) Interpretation(s) CBC & BMP Diagram 06/15/17 09:15 Total Protein 6.8, Albumin 3.2 L, Calcium Level 9.3, Phosphorus Level 1.4 L, Magnesium Level 1.7, Alkaline Phosphatase 63, Aspartate Amino Transf (AST/SGOT) 89 H, Alanine Aminotransferase (ALT/SGPT) 67 H, Total Bilirubin 0.5 Last [address] 06/15/17 0000 Signed Impressions: Service Date/Time: May 10:40 - CONCLUSION: Stable CT scan of the brain compared to the prior examination. No acute intracranial hemorrhage. Glenroy Brown MD Chest X-Ray 06/15/17 0000 Signed Impressions: Service Date/Time: May 09:03 - CONCLUSION: No acute disease. No significant change has occurred. Nomi Tyson MD Differential Diagnosis UTI, pneumonia, anemia, renal failure, deconditioning Narrative Course Will check blood work, chest x-ray, urinalysis, influenza and reevaluate ED workup shows rhabdomyolysis, hyponatremia, elevated troponin. She has no acute traumatic injury on initial evaluation. She was given aspirin for elevated troponin but is pain-free currently. for rhabdomyolysis and hyponatremia she was given fluids. She'll need to be monitored closely. Patient given antibiotics for urinary tract infection Physician Communication Physician Communication resident team agrees to admit Diagnosis Primary Impression: Hyponatremia Additional Impressions: Fall at home Qualified Codes: W19.XXXA - Unspecified fall, initial encounter; Y92.099 - Unspecified place in other non-institutional residence as the place of occurrence of the external cause Rhabdomyolysis Qualified Codes: M62.82 - Rhabdomyolysis Elevated troponin UTI (urinary tract infection) Qualified Codes: N39.0 - Urinary tract infection, site not specified Admitting Information Admitting Physician Requests: Admit Marianna Muñoz MD Jun 15, 2017 09:07
[2017-06-15 09:35] LABS: BASOPHIL % 0.4 % (0.0-2.0); EOSINOPHIL % 0.5 % (0.0-4.0); HEMATOCRIT 37.7 % (35.0-46.0); LYMPH % 17.5 % (9.0-44.0); LYMPHOCYTE # 1.3 TH/MM3 (1.0-4.8); MEAN CELL VOLUME 84.2 FL (80.0-100.0); MEAN CORPUSCULAR HGB CONC 34.5 % (32.0-36.0); MEAN PLATELET VOLUME 7.8 FL (7.0-11.0); MONO % 13.6 % (0.0-8.0); PLATELET COUNT 246 TH/MM3 (150-450); RED BLOOD COUNT 4.48 MIL/MM3 (4.00-5.30); RED CELL DISTRIBUTION WIDTH 14.3 % (11.6-17.2); WHITE BLOOD COUNT 7.3 TH/MM3 (4.0-11.0)
--- NOTE | 2017-06-15 09:39 | RADRPT ---
EXAM DATE/TIME: 06/15/2017 09:03 [facility] COMPARISON: CHEST SINGLE AP, September 02, 2016, 10:52. INDICATIONS : Syncope resulting in falls. MEDICAL HISTORY : None. SURGICAL HISTORY : None. ENCOUNTER: Initial ACUITY: 2 weeks PAIN SCORE: 0/10 LOCATION: Bilateral chest FINDINGS: A single view of the chest demonstrates the lungs to be symmetrically aerated without evidence of mas s, infiltrate or effusion. The cardiomediastinal contours are unremarkable. Osseous structures are intact. CONCLUSION: No acute disease. No significant change has occurred. Nomi Tyson MD on June 15, 2017 at 9:37 Board Certified Radiologist. This report was verified electronically.
[2017-06-15 09:42] LABS: INTERNATIONAL NORMALIZED RATIO 1.1 RATIO; PROTHROMBIN TIME - PATIENT 10.9 SEC (9.8-11.6)
[2017-06-15 09:44] LABS: BACTERIA, URINE RARE /hpf; BILIRUBIN, URINE NEG (NEG); BLOOD, URINE SMALL (NEG); GLUCOSE,URINE NEG (NEG); HYALINE CAST, URINE 1 /lpf (RARE); KETONE, URINE 10 mg/dL (NEG); MUCUS URINE FEW /lpf (OCC); NITRITE,URINE NEG (NEG); PH, URINE 6.5 (5.0-8.5); SQUAMOUS EPITHELIAL CELL URINE 2 /hpf (0-5); TRANSITIONAL EPI CELLS, URINE <1 /hpf; URINE COLOR LIGHT-YELLOW (YELLW/STRAW); URINE LEUKOCYTE ESTERASE SMALL (NEG)
[2017-06-15] MEDS ORDERED: cefTRIAXone INJ 1,000 MG in SODIUM CHLORIDE 0.9% INJ 100 ML IV ONE (10:00)
[2017-06-15 10:07] LABS: ALBUMIN 3.2 GM/DL (3.4-5.0); ALKALINE PHOSPHATASE 63 U/L (45-117); ALT (GPT) 67 U/L (10-53); AST (GOT) 89 U/L (15-37); BLOOD UREA NITROGEN 7 MG/DL (7-18); CALCIUM 9.3 MG/DL (8.5-10.1); CHLORIDE 79 MEQ/L (98-107); CREATININE 0.48 MG/DL (0.50-1.00); GLOMERULAR FILTRATION RATE 124 ML/MIN (>89); GLUCOSE,RANDOM 116 MG/DL (74-106); MAGNESIUM 1.7 MG/DL (1.5-2.5); PHOSPHORUS 1.4 MG/DL (2.5-4.9); TOTAL BILIRUBIN ADULT 0.5 MG/DL (0.2-1.0)
[2017-06-15 10:09] LABS: SODIUM (NA) 114 MEQ/L (136-145); TROPONIN I 0.77 NG/ML (0.02-0.05)
[2017-06-15 10:12] LABS: TOTAL PROTEIN 6.8 GM/DL (6.4-8.2)
--- NOTE | 2017-06-15 12:44 | RADRPT ---
EXAM DATE/TIME: 06/15/2017 10:40 [facility] COMPARISON: CT BRAIN W/O CONTRAST, September 02, 2016, 11:11. INDICATIONS : Generalized weakness, frequent falls. RADIATION DOSE: 35.90 CTDIvol (mGy) MEDICAL HISTORY : Hypothyroidism. SURGICAL HISTORY : None. ENCOUNTER: Initial ACUITY: 1 week PAIN SCALE: 0/10 LOCATION: cranial TECHNIQUE: Multiple contiguous axial images were obtained of the head. Using automated exposure control and adj ustment of the mA and/or kV according to patient size, radiation dose was kept as low as reasonably a chievable to obtain optimal diagnostic quality images. DICOM format image data is available electro nically for review and comparison. FINDINGS: CEREBRUM: The ventricles are normal for age. No evidence of midline shift, mass lesion, hemorrhage or acute in farction. No extra-axial fluid collections are seen. POSTERIOR FOSSA: The cerebellum and brainstem are intact. The 4th ventricle is midline. The cerebellopontine angle i s unremarkable. EXTRACRANIAL: The visualized portion of the orbits is intact. SKULL: The calvaria is intact. No evidence of skull fracture. No significant changes compared to the prior study. CONCLUSION: Stable CT scan of the brain compared to the prior examination. No acute intracranial hemorrhage. Glenroy Brown MD on June 15, 2017 at 12:41 Board Certified Radiologist. This report was verified electronically.
[2017-06-15] MEDS ORDERED: ASPIRIN 325 MG TAB PO ONE (13:00)
--- NOTE | 2017-06-15 13:36 | HHI.HP ---
HPI Service Family Medicine Primary Care Physician Unknown Admission Diagnosis hyponatremia, rhabdomyolysis, elevated troponin, frequent falls Diagnoses: International Travel<30 Days: No Contact w/Intl Traveler<30days: No Known Affected Area: No History of Present Illness Mrs. Flores is a 82-year-old female with past medical history of depression and hyperlipidemia presenting to the ED by EVAC after falling at her home. She states that she has been falling for about a month. She falls every time she gets up from bed to go to the bathroom. She is unsure of how many times a day this happens. She says every time she falls she hits her head. The last time she hit her head was today, she did not lose consciousness, no bruising or bleeding noted by patient. She hit her head on her night table on the right posterior side. She states that she was on the floor for about 10 minutes. Her disabled helped her to get up though he had trouble doing so. She says she usually has dizziness when she gets up from sitting to standing. She states that she stays in bed all day because she is unable to walk. She uses a walker, but it is not near her bed so she usually falls before she actually gets to her walker. She states that she drinks a glass of water every hour. However, when asked again a little later she says she only drinks 8 glasses of water a day and then changed her answer back to every hour. She states that she is always thirsty. She used to take salt pills, 2 a day. However she stopped taking them a month ago. She sees Dr. Philly Hsu for PCP. (Yulisa Gallardo MD R1) Review of Systems Constitutional: DENIES: Fever, Chills Endocrine: COMPLAINS OF: Polyphagia Respiratory: COMPLAINS OF: Cough (dry) Cardiovascular: DENIES: Chest pain Genitourinary: DENIES: Urinary frequency, Dysuria Musculoskeletal: DENIES: Muscle aches Hematologic/lymphatic: COMPLAINS OF: Bruising Neurologic: DENIES: Seizures (Yulisa Gallardo MD R1) Past Family Social History Past Medical History Cholesterol Depression Past Surgical History none Reported Medications Claritin and Zyrtec Reported Meds & Active Scripts Active Reported Simvastatin 5 Mg Tab 5 Mg PO DAILY Aspirin 81 Mg Chew 81 Mg CHEW DAILY Effexor (Venlafaxine HCl) 25 Mg Tab 25 Mg PO Q12H (Yulisa Gallardo MD R1) Allergies: Coded Allergies: No Known Allergies (Verified Allergy, Unknown, 06/15/17) Family History mom- seizures Social History lives with in a condo used to be a teacher Tobacco- quit 20 yrs ago alcohol- none illicit drugs- none (Yulisa Gallardo MD R1) Physical Exam Vital Signs Vital Signs Date Time Temp Pulse Resp B/P (MAP) Pulse Ox O2 Delivery O2 Flow Rate FiO2 06/15/17 10:13 99.1 78 15 96 Room Air 06/15/17 08:35 99.1 86 15 140/75 (96) 93 Physical Exam GENERAL: This is a well-nourished, well-developed elderly female patient laying in bed, in no apparent distress. SKIN: No rashes or lesions. Cool and dry. Scattered ecchymoses over bilateral legs, arms, and torso. HEAD: Atraumatic. Normocephalic. EYES: Pupils equal round and reactive. Extraocular motions intact. No scleral icterus. No injection or drainage. ENT: Nose without bleeding, purulent drainage or septal hematoma. Throat without erythema, tonsillar hypertrophy or exudate. Uvula midline. Airway patent. NECK: Trachea midline. No JVD or lymphadenopathy. Supple, nontender, no meningeal signs. CARDIOVASCULAR: Regular rate and rhythm without murmurs, gallops, or rubs. RESPIRATORY: Clear to auscultation. Breath sounds equal bilaterally. No wheezes , rales, or rhonchi. GASTROINTESTINAL: Abdomen soft, non-tender, nondistended. No hepato-splenomegaly , or palpable masses. No guarding. MUSCULOSKELETAL: Extremities without clubbing, cyanosis, or edema. No joint tenderness, effusion, or edema noted. NEUROLOGICAL: Awake and alert. Motor and sensory grossly within normal limits. Normal speech. Laboratory Laboratory Tests Test 06/15/17 09:15 White Blood Count 7.3 Red Blood Count 4.48 Hemoglobin 13.0 Hematocrit 37.7 Mean Corpuscular Volume 84.2 Mean Corpuscular Hemoglobin 29.0 Mean Corpuscular Hemoglobin Concent 34.5 Red Cell Distribution Width 14.3 Platelet Count 246 Mean Platelet Volume 7.8 Neutrophils (%) (Auto) 68.0 Lymphocytes (%) (Auto) 17.5 Monocytes (%) (Auto) 13.6 Eosinophils (%) (Auto) 0.5 Basophils (%) (Auto) 0.4 Neutrophils # (Auto) 5.0 Lymphocytes # (Auto) 1.3 Monocytes # (Auto) 1.0 Eosinophils # (Auto) 0.0 Basophils # (Auto) 0.0 CBC Comment DIFF FINAL Differential Comment Prothrombin Time 10.9 Prothromb Time International Ratio 1.1 Activated Partial Thromboplast Time 23.4 Urine Color LIGHT-YELLOW Urine Turbidity CLEAR Urine pH 6.5 Urine Specific [place] 1.010 Urine Protein 30 Urine Glucose (UA) NEG Urine Ketones 10 Urine Occult Blood SMALL Urine Nitrite NEG Urine Bilirubin NEG Urine Urobilinogen LESS THAN 2.0 Urine Leukocyte Esterase SMALL Urine RBC 3 Urine WBC 13 Urine Squamous Epithelial Cells 2 Urine Transitional Epithelial Cells <1 Urine Bacteria RARE Urine Hyaline Casts 1 Urine Mucus FEW Microscopic Urinalysis Comment CULTURE INDICATED Blood Urea Nitrogen 7 Creatinine 0.48 Random Glucose 116 Total Protein 6.8 Albumin 3.2 Calcium Level 9.3 Phosphorus Level 1.4 Magnesium Level 1.7 Alkaline Phosphatase 63 Aspartate Amino Transf (AST/SGOT) 89 Alanine Aminotransferase (ALT/SGPT) 67 Total Bilirubin 0.5 Sodium Level 114 Potassium Level 3.1 Chloride Level 79 Carbon Dioxide Level 25.0 Anion Gap 10 Estimat Glomerular Filtration Rate 124 Total Creatine Kinase 1263 Creatine Kinase MB 25.1 Creatine Kinase MB % 2.0 Troponin I 0.77 Date/Time Source Procedure Growth Status 06/15/17 11:00 Blood Peripheral Aerobic Blood Culture Pending Received 06/15/17 11:00 Blood Peripheral Anaerobic Blood Culture Pending Received 06/15/17 09:15 Nasal Aspirate Influenza Types A,B Antigen (AMELIA) - Final NEGATIVE FOR FLU A AND B ANTIGEN.... Complete 06/15/17 09:15 Urine Clean Catch Urine Culture Pending Received (Yulisa Gallardo MD R1) Result Diagram: 06/15/17 0915 06/15/17 0915 Imaging Last Impressions Head CT 06/15/17 0000 Signed Impressions: Service Date/Time: May 10:40 - CONCLUSION: Stable CT scan of the brain compared to the prior examination. No acute intracranial hemorrhage. Glenroy Brown MD Chest X-Ray 06/15/17 0000 Signed Impressions: Service Date/Time: May 09:03 - CONCLUSION: No acute disease. No significant change has occurred. Nomi Tyson MD (Yulisa Gallardo MD R1) Caprini VTE Risk Assessment Caprini VTE Risk Assessment: Mod/High Risk (score >= 2) Caprini Risk Assessment Model Point Value = 1 Point Value = 2 Point Value = 3 Point Value = 5 Age 41-60 Minor surgery BMI > 25 kg/m2 Swollen legs Varicose veins or History of unexplained or recurrent spontaneous Oral contraceptives or hormone replacement Sepsis (< 1 month) Serious lung disease, including pneumonia (< 1 month) Abnormal pulmonary function Acute myocardial infarction Congestive heart failure (< 1 month) History of inflammatory bowel disease Medical patient at bed rest Age 61-74 Arthroscopic surgery Major open surgery (> 45 min) Laparoscopic surgery (> 45 min) Malignancy Confined to bed (> 72 hours) Immobilizing plaster cast Central venous access Age >= 75 History of VTE Family history of VTE Factor V Leiden Prothrombin [id number] Lupus anticoagulant Anticardiolipin antibodies Elevated serum homocysteine Heparin-induced thrombocytopenia Other congenital or acquired thrombophilia Stroke (< 1 month) Elective arthroplasty Hip, pelvis, or leg fracture Acute spinal cord injury (< 1 month) Prophylaxis Regimen Total Risk Factor Score Risk Level Prophylaxis Regimen 0-1 Low Early ambulation 2 Moderate Order ONE of the following: *Sequential Compression Device (SCD) *Heparin 5000 units SQ BID 3-4 Higher Order ONE of the following medications: *Heparin 5000 units SQ TID *Enoxaparin/Lovenox 40 mg SQ daily (WT < 150 kg, CrCl > 30 mL/min) *Enoxaparin/Lovenox 30 mg SQ daily (WT < 150 kg, CrCl > 10-29 mL/min) *Enoxaparin/Lovenox 30 mg SQ BID (WT < 150 kg, CrCl > 30 mL/min) AND/OR *Sequential Compression Device (SCD) 5 or more Highest Order ONE of the following medications: *Heparin 5000 units SQ TID (Preferred with Epidurals) *Enoxaparin/Lovenox 40 mg SQ daily (WT < 150 kg, CrCl > 30 mL/min) *Enoxaparin/Lovenox 30 mg SQ daily (WT < 150 kg, CrCl > 10-29 mL/min) *Enoxaparin/Lovenox 30 mg SQ BID (WT < 150 kg, CrCl > 30 mL/min) AND *Sequential Compression Device (SCD) (Yulisa Gallardo MD R1) Assessment and Plan Assessment and Plan Mrs. Flores is a 82yo female presenting with frequent falls and hyponatremia. Code Status Full code Discussed Condition With Doctors Porfirio and Evette (Yulisa Gallardo MD R1) Attending Attestation Patient seen and examined. Case reviewed and discussed with the resident team. Agree with plan of care as discussed with me and documented in the resident note. pt seen on admission in ED. called her PCP's office (Dr Philly Hsu) and spoke to his nurse who gave more details on pt and meds (Althea Alas MD) Problem List: (1) Hyponatremia ICD Codes: E87.1 - Hypo-osmolality and hyponatremia Status: Acute Plan: Sodium level upon admission was 114. This may be due to patient drinking water throughout the day. Patient not taking any medications that can cause hyponatremia. Serum osmolality is low at 237. Urine osmolality is 350. Urine sodium is high at 57. * Obtain AM cortisol * Fluid Restriction to 1.5 L per day * Due to patient's rhabdomyolysis will also have to be on hypertonic saline * Be careful not to overcorrect, goal is to increase 4-6 in mEq/L in a 24-hour period (maximum is 8) to prevent osmotic demyelinization syndrome * Repeat BMP at 1900 (2) Rhabdomyolysis ICD Codes: M62.82 - Rhabdomyolysis Status: Acute Plan: CPK at admission was 1263. This may be due to patient falling vs unknown seizure. * Trend levels * Started normal saline at 100 mL's per hour (3) Elevated troponin ICD Codes: R74.8 - Abnormal levels of other serum enzymes Status: Acute Plan: Troponin level 0.77 at admission. Patient not experiencing any chest pain currently or any angina symptoms in the past. * Trend levels with EKGs- 0.77->0.97 * Continue to monitor for any symptoms * Will not heparinize at this time due to patient being asymptomatic (4) Fall at home ICD Codes: W19.XXXA - Unspecified fall, initial encounter; Y92.099 - Unspecified place in other non-institutional residence as the place of occurrence of the external cause Status: Acute Plan: * Obtain orthostatics * Consult PT and OT * Consult case management in case of need for rehabilitation (5) UTI (urinary tract infection) ICD Codes: N39.0 - Urinary tract infection, site not specified Status: Acute Plan: UA on admission showed small leukocyte esterase, WBCs, and rare bacteria. * Urine culture pending * Patient given Rocephin 1 g IV in the ED, will continue daily (6) FEN Status: Acute Plan: Fluids: NS @ 100ml/hr Electrolytes: monitor and replete as needed Nutrition: Regular diet DVT Prophylaxis: Early ambulation. Lovenox 40mg subQ q24hr GI Prophylaxis: None indicated at this time Pain management: Tylenol (Yulisa Gallardo MD R1) Problem List: (1) Hyponatremia ICD Codes: E87.1 - Hypo-osmolality and hyponatremia Status: Acute Plan: Sodium level upon admission was 114. This may be due to patient drinking water throughout the day. Patient not taking any medications that can cause hyponatremia. Serum osmolality is low at 237. Urine osmolality is 350. Urine sodium is high at 57. * Obtain AM cortisol * Fluid Restriction to 1.5 L per day * Due to patient's rhabdomyolysis will also have to be on saline * Be careful not to overcorrect, goal is to increase 4-6 in mEq/L in a 24-hour period (maximum is 8) to prevent osmotic demyelinization syndrome * Repeat BMP at 1900 (2) Rhabdomyolysis ICD Codes: M62.82 - Rhabdomyolysis Status: Acute Plan: CPK at admission was 1263. This may be due to patient falling vs unknown seizure. * Trend levels * Started normal saline at 100 mL's per hour (3) Elevated troponin ICD Codes: R74.8 - Abnormal levels of other serum enzymes Status: Acute Plan: Troponin level 0.77 at admission. Patient not experiencing any chest pain currently or any angina symptoms in the past. * Trend levels with EKGs- 0.77->0.97 * Continue to monitor for any symptoms * Will not heparinize at this time due to patient being asymptomatic * she has rhabdo which has effected her heart as her CK MBs are elevated (4) Fall at home ICD Codes: W19.XXXA - Unspecified fall, initial encounter; Y92.099 - Unspecified place in other non-institutional residence as the place of occurrence of the external cause Status: Acute Plan: * Obtain orthostatics * Consult PT and OT * Consult case management in case of need for rehabilitation (5) UTI (urinary tract infection) ICD Codes: N39.0 - Urinary tract infection, site not specified Status: Acute Plan: UA on admission showed small leukocyte esterase, WBCs, and rare bacteria. * Urine culture pending * Patient given Rocephin 1 g IV in the ED, will continue daily (6) FEN Status: Acute Plan: Fluids: NS @ 100ml/hr Electrolytes: monitor and replete as needed Nutrition: Regular diet DVT Prophylaxis: Early ambulation. Lovenox 40mg subQ q24hr GI Prophylaxis: None indicated at this time Pain management: Tylenol (Althea Alas MD) Physician Certification 2 Midnight Certification Type: Admission for Inpatient Services Order for Inpatient Services The services are ordered in accordance with Medicare regulations or non- Medicare payer requirements, as applicable. In the case of services not specified as inpatient-only, they are appropriately provided as inpatient services in accordance with the 2-midnight benchmark. Estimated LOS (days): 2 days is the estimated time the patient will need to remain in the hospital, assuming treatment plan goals are met and no additional complications. Post-Hospital Plan: Not yet determined (Yulisa Gallardo MD R1) Problem Qualifiers (1) Rhabdomyolysis: Qualified Codes: M62.82 - Rhabdomyolysis (2) Fall at home: Qualified Codes: W19.XXXA - Unspecified fall, initial encounter; Y92.099 - Unspecified place in other non-institutional residence as the place of occurrence of the external cause (3) UTI (urinary tract infection): Qualified Codes: N39.0 - Urinary tract infection, site not specified Yulisa Gallardo MD R1 Jun 15, 2017 13:35 Althea Alas MD Jun 16, 2017 13:36
[2017-06-15] MEDS ORDERED: SODIUM CHLOR 0.9% 1000 ML INJ 1,000 ML IV SCH (13:53)
[2017-06-15] MEDS ORDERED: ACETAMINOPHEN 325 MG TAB PO PRN (14:00)
[2017-06-15] MEDS ORDERED: BISACODYL 10 MG SUPP RECTAL PRN (14:00)
[2017-06-15] MEDS ORDERED: SODIUM CHLORIDE 0.9% FLUSH 10 ML FLUSH IV FLUSH PRN (14:00)
[2017-06-15] MEDS ORDERED: NALOXONE HCL 0.4 MG/ML AMP IV PUSH PRN (14:00)
[2017-06-15] MEDS ORDERED: LACTULOSE SYRUP 20 GM/30 ML CUP PO PRN (14:00)
[2017-06-15] MEDS ORDERED: MAGNESIUM HYDROXIDE SUSP 30 ML CUP PO PRN (14:00)
[2017-06-15] MEDS ORDERED: SENNOSIDES 8.6 MG TAB PO PRN (14:00)
[2017-06-15] MEDS ORDERED: POTASSIUM PHOSPHATE MONOBASIC 500 MG TAB PO ONE (16:00)
[2017-06-15] MEDS: ENOXAPARIN SODIUM 40 MG/0.4 ML SYRINGE SQ SCH (16:14)
--- NOTE | 2017-06-15 16:32 | HHI.PR ---
Addendum to Inpatient Note Addendum Reason: Additional Documentation Additional Information Ms Flores has an elevated troponin of .94. She has been completely asymptomatic regarding chest pain or any problems that could be cardiac. She has no chest tightness or pressure. She has no nausea or vomiting nor SOB or diaphoresis. When asked about Cardiac workup or heparin drip she declines any escalation in blood thinners as she has bruising all over. She denies any history of cardiac problems as well as no typical anginal sxs. She would be willing to see a Lube Worker if she worsens but is not having any sxs now. Althea Alas MD Jun 15, 2017 16:32
[2017-06-15 16:50] LABS: SODIUM,RANDOM URINE 57 MEQ/L
[2017-06-15 16:56] LABS: OSMOLALITY,URINE 350 MOSM/KG (300-1300)
[2017-06-15] MEDS: SODIUM CHLORIDE 0.9% FLUSH 10 ML FLUSH IV FLUSH SCH (21:00)
[2017-06-15] MEDS: DOCUSATE SODIUM 50 MG/SENNA 8.6 MG TAB PO SCH (21:00)
[2017-06-15 21:09] LABS: BICARBONATE 22.4 MEQ/L (21.0-32.0); CALCIUM 6.3 MG/DL (8.5-10.1); CREATININE 0.37 MG/DL (0.50-1.00)
[2017-06-15 21:14] LABS: TROPONIN I 0.48 NG/ML (0.02-0.05)
[2017-06-15 21:26] LABS: CALCIUM-PROTEIN CORRECTED 7.5 MG/DL (8.5-10.1); TOTAL PROTEIN 4.6 GM/DL (6.4-8.2)
--- NOTE | 2017-06-15 22:13 | EKG ---
Date Performed: 06/15/2017 Time Performed: 08:39:07 PTAGE: 82 years EKG: Sinus rhythm POSSIBLE LEFT ATRIAL ENLARGEMENT NONSPECIFIC T-WAVE ABNORMALITY BORDERLINE ECG PREVIOUS TRACING : 09/03/2016 00.24 Compared to prior tracing no significant change DOCTOR: Clifford Mujica Interpretating Date/Time 06/15/2017 22:11:49
[2017-06-15] MEDS ORDERED: DEXTROSE 5% IN WATE 500 ML INJ 500 ML IV ONE (22:45)
[2017-06-15] MEDS ORDERED: POTASSIUM CHLORIDE 20 MEQ CONTROLLED RELEASE TAB PO ONE (22:45)
[2017-06-15] MEDS ORDERED: DESMOPRESSIN ACETATE 4 MCG/ML VIAL IV PUSH ONE (23:00)
[2017-06-16] VITALS (9 sets, daily range): BP systolic 137–176; BP diastolic 88–115; PULSE 86–106; RESP 18–21; TEMP 98.3–98.9; O2SAT 94–97
--- NOTE | 2017-06-16 00:01 | HHI.PR ---
Addendum to Inpatient Note Addendum Reason: Additional Documentation Additional Information Residents received notification (~[id number] 06/15/2017) regarding patient's BMP results: BMP: Na 126 (114 at 0915 06/15), K 2.1, Cl 94, Cr 0.37, Protein corrected Ca 7.5 Other labs also resulted: Troponin 0.48 (0.97 1421 06/15), CKMB 14.3 (21.5 1650 06/15) Total CK 673 (1047 1650 06/15) S: Patient evaluated due to concern for serum sodium increase. Patient doing well; she seemed confused with normal speech [seemingly unchanged from previously per EMR review]. Patient requested to be able to move her bed up and down, to get nursing assistance to bathroom, and to obtain a toothbrush for her teeth. Patient did not report any headache, acute visual changes, or loss of sensation or strength in extremities. No chest pain or respiratory concerns reported. O: Gen: NAD Respiratory: Normal rate; clear to auscultation bilaterally Cardiovascular: Regular rate and rhythm; grossly normal perfusion Neuro: CN normal. Peripheral strength and sensation intact. Cerebellar testing not performed but grossly normal coordination during physical exam Skin: Bruising diffusely on extremities A/P: Hypokalemia Impression: K 2.1 (Mg 1.7) -Will replete with 40mEq KCl x2 (3hrs between administration) -Will recheck BMP in several hours and replete further as needed Hyponatremia Impression: Na 126 (12 mEq correction in 12 hrs). No associated neurological symptoms; patient doing well. Likely chronic hyponatremia with Na in 130's 08/2016; patient also suggests primary polydipsia as mechanism for hyponatremia. Possible SiADH also. Patient was prescribed salt tablets as outpatient but likely poor compliance. -Will give D5W at 6ml/kg over 2 hrs to attempt to reduce Na by 2 mEq -Will recheck BMP at that time and adjust fluids/rate of administration at that time -Discussed DDAVP; will defer at this time Troponin elevation Impression: Downtrending in absence of cardiac symptoms. EKG's reassuring. Suspect renal etiology CK elevation Impression: Downtrending Suspect muscular breakdown from debility/falls vs seizure at home as hyponatremic -Continue IVF -Continue to monitor CK and renal function Discussed with Max and Dr. Evette Geronimo,Feliz Alvarado MD, R3 Jun 16, 2017 00:01
[2017-06-16 01:25] LABS: CALCIUM 8.5 MG/DL (8.5-10.1); CREATININE 0.54 MG/DL (0.50-1.00)
[2017-06-16] MEDS ORDERED: POTASSIUM CHLORIDE 20 MEQ CONTROLLED RELEASE TAB PO ONE (01:45)
[2017-06-16] MEDS: SODIUM CHLOR 0.9% 1000 ML INJ 1,000 ML IV SCH ×3 (02:00→21:15)
[2017-06-16] MEDS ORDERED: LORazepam 0.5 MG TAB PO ONE (04:45)
[2017-06-16 06:02] LABS: AUTOMATED NEUTROPHIL # 4.6 TH/MM3 (1.8-7.7); BASOPHIL % 0.4 % (0.0-2.0); EOSINOPHIL # 0.1 TH/MM3 (0-0.4); HEMATOCRIT 35.4 % (35.0-46.0); HEMOGLOBIN 12.2 GM/DL (11.6-15.3); LYMPH % 28.6 % (9.0-44.0); LYMPHOCYTE # 2.4 TH/MM3 (1.0-4.8); MEAN CELL VOLUME 84.3 FL (80.0-100.0); MEAN CORPUSCULAR HEMOGLOBIN 29.2 PG (27.0-34.0); MEAN CORPUSCULAR HGB CONC 34.6 % (32.0-36.0); MEAN PLATELET VOLUME 7.6 FL (7.0-11.0); MONO % 14.5 % (0.0-8.0); MONOCYTE # 1.2 TH/MM3 (0-0.9); NEUT % 55.5 % (16.0-70.0); PLATELET COUNT 233 TH/MM3 (150-450); RED CELL DISTRIBUTION WIDTH 14.1 % (11.6-17.2); WHITE BLOOD COUNT 8.3 TH/MM3 (4.0-11.0)
[2017-06-16 06:24] LABS: ALBUMIN 3.1 GM/DL (3.4-5.0); ALT (GPT) 60 U/L (10-53); AST (GOT) 63 U/L (15-37); BICARBONATE 24.9 MEQ/L (21.0-32.0); BLOOD UREA NITROGEN 7 MG/DL (7-18); CALCIUM 8.4 MG/DL (8.5-10.1); CHLORIDE 82 MEQ/L (98-107); CREATININE 0.42 MG/DL (0.50-1.00); GLOMERULAR FILTRATION RATE 144 ML/MIN (>89); GLUCOSE,RANDOM 103 MG/DL (74-106); MAGNESIUM 1.5 MG/DL (1.5-2.5)
[2017-06-16 06:28] LABS: SODIUM (NA) 117 MEQ/L (136-145)
[2017-06-16 06:30] LABS: TOTAL BILIRUBIN ADULT 0.4 MG/DL (0.2-1.0); TOTAL PROTEIN 6.1 GM/DL (6.4-8.2)
[2017-06-16 07:05] LABS: ALKALINE PHOSPHATASE 55 U/L (45-117)
[2017-06-16] MEDS ORDERED: PRAVASTATIN SOD 10 MG TAB PO SCH (09:00)
--- NOTE | 2017-06-16 09:36 | HHI.HP ---
[facility] Service Family Medicine Primary Care Physician Unknown Admission Diagnosis hyponatremia, rhabdomyolysis, elevated troponin, frequent falls Diagnoses: (1) Hyponatremia Diagnosis: Principal (2) Rhabdomyolysis Diagnosis: Principal (3) Elevated troponin Diagnosis: Principal (4) Fall at home Diagnosis: Principal (5) UTI (urinary tract infection) Diagnosis: Principal (6) FEN Diagnosis: Principal International Travel<30 Days: No Contact w/Intl Traveler<30days: No Known Affected Area: No History of Present Illness Mrs. Flores is a 82-year-old female with past medical history of depression and hyperlipidemia and per report schizophrenia, presenting to the ED by EVAC after falling at her home. She states that she has been falling for about a month. She falls every time she gets up from bed to go to the bathroom. She is unsure of how many times a day this happens. She says every time she falls she hits her head. The last time she hit her head was the day of admission , she did not lose consciousness, no bruising or bleeding noted by patient. She hit her head on her night table on the right posterior side. She states that she was on the floor for about 10 minutes. Her disabled helped her to get up though he had trouble doing so. She says she usually has dizziness when she gets up from sitting to standing. She states that she stays in bed all day because she is unable to walk. She uses a walker, but it is not near her bed so she usually falls before she actually gets to her walker. She stated that she drinks a glass of water every hour. However, when asked again a little later she says she only drinks 8 glasses of water a day and then changed her answer back to every hour. She states that she is always thirsty. She used to take salt pills, 2 a day 1 gram each. However she stopped taking them a month ago. She sees Dr. Philly Hsu for PCP. She is a bit of a difficult historian but did state today that she took salt pills for about 10 years. Her Na was checked multiple times overnight and initially jumped from 114 to 126 at which time she was given free water. Subsequently, he sodium decreased and was in the 117 to 118 range. Her labs of 126 may be in error as their were other anomalies as well with them compared to the other subsequent labs. Today she was more forthcoming about her meds and stated she was taking her thyroid meds and other Psychiatric meds including Risperdal up to 4-5 times a day at unknown dose. Plus she admitted taking another Psychiatric med she did not know but was able to provide her Pharmacy [facility] so her information can be checked. Review of Systems ROS Limitations: Poor Historian Cardiovascular: DENIES: Chest pain, Palpitations Gastrointestinal: DENIES: Anorexia Other Constitutional: DENIES: Fever, Chills Endocrine: COMPLAINS OF: Polyphagia Respiratory: COMPLAINS OF: Cough (dry) Cardiovascular: DENIES: Chest pain Genitourinary: DENIES: Urinary frequency, Dysuria Musculoskeletal: DENIES: Muscle aches Hematologic/lymphatic: COMPLAINS OF: Bruising Neurologic: DENIES: Seizures Past Family Social History Past Medical History Cholesterol Depression per report serious Psychiatric illness perhaps Schizophrenia history of taking salt tablets Past Surgical History none Allergies: Coded Allergies: No Known Allergies (Verified Allergy, Unknown, 06/15/17) Family History mom- seizures Social History lives with in a condo used to be a teacher Tobacco- quit 20 yrs ago alcohol- none illicit drugs- none Physical Exam Vital Signs Vital Signs Date Time Temp Pulse Resp B/P (MAP) Pulse Ox O2 Delivery O2 Flow Rate FiO2 06/16/17 08:05 98.7 105 21 176/115 (135) 94 06/16/17 04:00 93 06/16/17 03:50 98.3 91 20 137/89 (105) 96 06/16/17 00:00 92 06/15/17 23:00 99.0 92 18 126/63 (84) 97 06/15/17 20:04 98.9 92 18 140/83 (102) 96 167/95 (119) 156/98 (117) 06/15/17 20:00 95 06/15/17 16:00 98.7 86 20 153/70 (97) 97 06/15/17 15:00 98.2 85 18 152/67 (95) 97 06/15/17 12:30 82 16 132/70 (90) 96 Room Air 06/15/17 12:30 99.0 78 16 126/70 (88) 96 06/15/17 10:13 99.1 78 15 96 Room Air Physical Exam GENERAL: This is a well-nourished, well-developed elderly female patient laying in bed, in no apparent distress. she has a flat affect and appears to fixate at times on one particular thing (having her diaper changed every 15 minutes initially in the ED for example) SKIN: No rashes or lesions. Cool and dry. Scattered ecchymoses over bilateral legs, arms, and torso. no hematoma on head HEAD: Atraumatic. Normocephalic. EYES: Pupils equal round and reactive. Extraocular motions intact. No scleral icterus. No injection or drainage. ENT: Nose without bleeding, purulent drainage or septal hematoma. Airway patent. NECK: Trachea midline. No JVD or lymphadenopathy. Supple, nontender, no meningeal signs. CARDIOVASCULAR: Regular rate and rhythm without murmurs, gallops, or rubs. RESPIRATORY: Clear to auscultation. Breath sounds equal bilaterally. No wheezes , rales, or rhonchi. GASTROINTESTINAL: Abdomen soft, non-tender, nondistended. No hepato-splenomegaly , or palpable masses. No guarding. MUSCULOSKELETAL: Extremities without clubbing, cyanosis, or edema. No joint tenderness, effusion, or edema noted. NEUROLOGICAL: Awake and alert. Motor and sensory grossly within normal limits. Normal speech. PSYCHIATRIC: she has a flat affect and is quiet and cooperative this am Laboratory Laboratory Tests Test 06/15/17 14:21 06/15/17 16:50 06/15/17 20:28 06/16/17 00:07 Total Creatine Kinase 1215 1047 673 Creatine Kinase MB 25.2 21.5 14.3 Creatine Kinase MB % 2.1 2.1 2.1 Troponin I 0.97 0.48 Blood Urea Nitrogen 6 8 Creatinine 0.37 0.54 Random Glucose 95 115 Total Protein 4.6 Calcium Level 6.3 8.5 Sodium Level 126 118 Potassium Level 2.1 2.7 Chloride Level 94 80 Carbon Dioxide Level 22.4 29.0 Anion Gap 10 9 Estimat Glomerular Filtration Rate 167 108 Protein Corrected Calcium 7.5 Serum Osmolality 239 Test 06/16/17 05:48 White Blood Count 8.3 Red Blood Count 4.20 Hemoglobin 12.2 Hematocrit 35.4 Mean Corpuscular Volume 84.3 Mean Corpuscular Hemoglobin 29.2 Mean Corpuscular Hemoglobin Concent 34.6 Red Cell Distribution Width 14.1 Platelet Count 233 Mean Platelet Volume 7.6 Neutrophils (%) (Auto) 55.5 Lymphocytes (%) (Auto) 28.6 Monocytes (%) (Auto) 14.5 Eosinophils (%) (Auto) 1.0 Basophils (%) (Auto) 0.4 Neutrophils # (Auto) 4.6 Lymphocytes # (Auto) 2.4 Monocytes # (Auto) 1.2 Eosinophils # (Auto) 0.1 Basophils # (Auto) 0.0 CBC Comment DIFF FINAL Differential Comment Blood Urea Nitrogen 7 Creatinine 0.42 Random Glucose 103 Total Protein 6.1 Albumin 3.1 Calcium Level 8.4 Magnesium Level 1.5 Alkaline Phosphatase 55 Aspartate Amino Transf (AST/SGOT) 63 Alanine Aminotransferase (ALT/SGPT) 60 Total Bilirubin 0.4 Sodium Level 117 Potassium Level 3.7 Chloride Level 82 Carbon Dioxide Level 24.9 Anion Gap 10 Estimat Glomerular Filtration Rate 144 Total Creatine Kinase 785 Creatine Kinase MB 18.8 Creatine Kinase MB % 2.4 Troponin I 0.50 Thyroid Stimulating Hormone 3rd Gen 1.490 Random Cortisol 30.6 Date/Time Source Procedure Growth Status 06/15/17 11:00 Blood Peripheral Aerobic Blood Culture Pending Received 06/15/17 11:00 Blood Peripheral Anaerobic Blood Culture Pending Received 06/15/17 09:15 Nasal Aspirate Influenza Types A,B Antigen (AMELIA) - Final NEGATIVE FOR FLU A AND B ANTIGEN.... Complete 06/15/17 09:15 Urine Clean Catch Urine Culture Pending Received Result Diagram: 06/16/17 0548 06/16/17 0548 Imaging Last Impressions Head CT 06/15/17 0000 Signed Impressions: Service Date/Time: May 10:40 - CONCLUSION: Stable CT scan of the brain compared to the prior examination. No acute intracranial hemorrhage. Glenroy Brown MD Chest X-Ray 06/15/17 0000 Signed Impressions: Service Date/Time: May 09:03 - CONCLUSION: No acute disease. No significant change has occurred. Nomi Tyson MD Caprini VTE Risk Assessment Caprini VTE Risk Assessment: Mod/High Risk (score >= 2) Caprini Risk Assessment Model Point Value = 1 Point Value = 2 Point Value = 3 Point Value = 5 Age 41-60 Minor surgery BMI > 25 kg/m2 Swollen legs Varicose veins or History of unexplained or recurrent spontaneous Oral contraceptives or hormone replacement Sepsis (< 1 month) Serious lung disease, including pneumonia (< 1 month) Abnormal pulmonary function Acute myocardial infarction Congestive heart failure (< 1 month) History of inflammatory bowel disease Medical patient at bed rest Age 61-74 Arthroscopic surgery Major open surgery (> 45 min) Laparoscopic surgery (> 45 min) Malignancy Confined to bed (> 72 hours) Immobilizing plaster cast Central venous access Age >= 75 History of VTE Family history of VTE Factor V Leiden Prothrombin [id number] Lupus anticoagulant Anticardiolipin antibodies Elevated serum homocysteine Heparin-induced thrombocytopenia Other congenital or acquired thrombophilia Stroke (< 1 month) Elective arthroplasty Hip, pelvis, or leg fracture Acute spinal cord injury (< 1 month) Prophylaxis Regimen Total Risk Factor Score Risk Level Prophylaxis Regimen 0-1 Low Early ambulation 2 Moderate Order ONE of the following: *Sequential Compression Device (SCD) *Heparin 5000 units SQ BID 3-4 Higher Order ONE of the following medications: *Heparin 5000 units SQ TID *Enoxaparin/Lovenox 40 mg SQ daily (WT < 150 kg, CrCl > 30 mL/min) *Enoxaparin/Lovenox 30 mg SQ daily (WT < 150 kg, CrCl > 10-29 mL/min) *Enoxaparin/Lovenox 30 mg SQ BID (WT < 150 kg, CrCl > 30 mL/min) AND/OR *Sequential Compression Device (SCD) 5 or more Highest Order ONE of the following medications: *Heparin 5000 units SQ TID (Preferred with Epidurals) *Enoxaparin/Lovenox 40 mg SQ daily (WT < 150 kg, CrCl > 30 mL/min) *Enoxaparin/Lovenox 30 mg SQ daily (WT < 150 kg, CrCl > 10-29 mL/min) *Enoxaparin/Lovenox 30 mg SQ BID (WT < 150 kg, CrCl > 30 mL/min) AND *Sequential Compression Device (SCD) Assessment and Plan Assessment and Plan Mrs. Flores is a 82yo female presenting with frequent falls and hyponatremia. Problem List: (1) Hyponatremia ICD Codes: E87.1 - Hypo-osmolality and hyponatremia Status: Acute Plan: Sodium level upon admission was 114. This may be due to patient drinking water throughout the day. Patient not taking any medications that can cause hyponatremia. Serum osmolality is low at 237. Urine osmolality is 350. Urine sodium is high at 57. * Obtain AM cortisol * Fluid Restriction to 1.5 L per day * Due to patient's rhabdomyolysis will also have to be on saline * Be careful not to overcorrect, goal is to increase 4-6 in mEq/L in a 24-hour period (maximum is 8) to prevent osmotic demyelinization syndrome * Repeated BMP at 1900 * her Na today was 117-118. she does need further correction today. * her serum osmolality is low and her urine should be dilute to hold on to the solutes and get rid of any extra free water. she does have a history of taking 2 grams per day of salt and then stopping a month ago. the salt tablets could be for excess fluid consumption. Ms Flores is a poor historian and I do not really know how much she drinks normally. Her is evidently disabled and has not been at the hospital but would be able to give more history. 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 this has likely been evaluated by her primary. per pt ( if she can be completely believed) she has been on salt pills for a decade so this suggests a chronic problem (2) Rhabdomyolysis ICD Codes: M62.82 - Rhabdomyolysis Status: Acute Plan: CPK at admission was 1263. This may be due to patient falling vs unknown seizure. * Trend levels daily * Started normal saline at 100 mL's per hour (3) Elevated troponin ICD Codes: R74.8 - Abnormal levels of other serum enzymes Status: Acute Plan: Troponin level 0.77 at admission. Patient not experiencing any chest pain currently or any angina symptoms in the past. * Trend levels with EKGs- 0.77->0.97 * Continue to monitor for any symptoms * Will not heparinize at this time due to patient being asymptomatic * suspect this is from Rhabdo effecting her heart as her CK MB is elevated (4) Fall at home ICD Codes: W19.XXXA - Unspecified fall, initial encounter; Y92.099 - Unspecified place in other non-institutional residence as the place of occurrence of the external cause Status: Acute Plan: * Obtain orthostatics (not done properly) * Consult PT and OT * Consult case management in case of need for rehabilitation (5) UTI (urinary tract infection) ICD Codes: N39.0 - Urinary tract infection, site not specified Status: Acute Plan: UA on admission showed small leukocyte esterase, WBCs, and rare bacteria. * Urine culture pending * Patient given Rocephin 1 g IV in the ED, will continue daily (6) FEN Status: Acute Plan: Fluids: NS @ 100ml/hr Electrolytes: monitor and replete as needed Nutrition: Regular diet DVT Prophylaxis: Early ambulation. Lovenox 40mg subQ q24hr GI Prophylaxis: None indicated at this time Pain management: Tylenol Problem Qualifiers (1) Rhabdomyolysis: Qualified Codes: M62.82 - Rhabdomyolysis (2) Fall at home: Qualified Codes: W19.XXXA - Unspecified fall, initial encounter; Y92.099 - Unspecified place in other non-institutional residence as the place of occurrence of the external cause (3) UTI (urinary tract infection): Qualified Codes: N39.0 - Urinary tract infection, site not specified Althea Alas MD Jun 16, 2017 09:36
[2017-06-16] MEDS: cefTRIAXone INJ 1,000 MG in SODIUM CHLORIDE 0.9% INJ 100 ML IV SCH (10:07)
[2017-06-16] MEDS: DOCUSATE SODIUM 50 MG/SENNA 8.6 MG TAB PO SCH ×2 (10:07→20:35)
[2017-06-16] MEDS: SODIUM CHLORIDE 0.9% FLUSH 10 ML FLUSH IV FLUSH SCH ×2 (10:07→20:36)
[2017-06-16] MEDS ORDERED: RALO1TAB PO (13:42)
[2017-06-16] MEDS ORDERED: RISP4TAB2 PO (13:42)
[2017-06-16] MEDS ORDERED: SIMV20TA PO (13:42)
--- NOTE | 2017-06-16 15:03 | EKG ---
Date Performed: 06/15/2017 Time Performed: 18:06:09 PTAGE: 82 years EKG: Sinus rhythm POSSIBLE LEFT ATRIAL ENLARGEMENT BORDERLINE LEFT AXIS DEVIATION POSSIBLE LEFT VENTRICULAR HYPERTROPH Y NONSPECIFIC T-WAVE ABNORMALITY Since previous tracing, no significant change noted ABNORMAL ECG PREVIOUS TRACING : 06/15/2017 08.39 DOCTOR: Elijah Perez Interpretating Date/Time 06/16/2017 15:01:28
[2017-06-16] MEDS: VENLAFAXINE HCL 25 MG TAB PO SCH (15:31)
[2017-06-16] MEDS: ENOXAPARIN SODIUM 40 MG/0.4 ML SYRINGE SQ SCH (15:34)
[2017-06-16] MEDS: risperiDONE 1 MG TAB PO SCH (20:35)
[2017-06-17] VITALS (8 sets, daily range): BP systolic 114–149; BP diastolic 59–87; PULSE 96–115; RESP 17–21; TEMP 98–99.3; O2SAT 96–97
[2017-06-17] MEDS: VENLAFAXINE HCL 25 MG TAB PO SCH ×2 (01:23→14:08)
[2017-06-17 07:36] LABS: BICARBONATE 27.4 MEQ/L (21.0-32.0); CALCIUM 8.2 MG/DL (8.5-10.1); CREATININE 0.44 MG/DL (0.50-1.00)
[2017-06-17] MEDS ORDERED: POTASSIUM CHLORIDE 25 MEQ EFFERVESCENT TAB PO ONE (08:15)
[2017-06-17] MEDS: SODIUM CHLORIDE 0.9% FLUSH 10 ML FLUSH IV FLUSH SCH ×2 (09:00→21:35)
[2017-06-17] MEDS: SODIUM CHLORIDE 1 GRAM TAB PO SCH ×2 (09:09→21:34)
[2017-06-17] MEDS: risperiDONE 1 MG TAB PO SCH ×2 (09:09→21:35)
[2017-06-17] MEDS: RALOXIFENE HCL 60 MG TAB PO SCH (09:09)
[2017-06-17] MEDS: DOCUSATE SODIUM 50 MG/SENNA 8.6 MG TAB PO SCH ×2 (09:09→21:00)
[2017-06-17] MEDS: PRAVASTATIN SOD 40 MG TAB PO SCH (09:10)
[2017-06-17] MEDS: cefTRIAXone INJ 1,000 MG in SODIUM CHLORIDE 0.9% INJ 100 ML IV SCH (09:11)
--- NOTE | 2017-06-17 12:06 | HHI.FPPN ---
Subjective Remarks No events overnight. This morning feels well. Urinating a lot but no dysuria. Denies CP/SOB. No abdominal pain. Notes her breathing "sounds bad." Mild dry cough. No fever/chills. (Jagdish Monroy MD) Objective Vitals Vital Signs Date Time Temp Pulse Resp B/P (MAP) Pulse Ox O2 Delivery O2 Flow Rate FiO2 06/17/17 08:04 98.9 115 20 149/87 (107) 96 06/17/17 04:00 100 06/17/17 04:00 99.3 101 18 118/59 (78) 96 06/17/17 00:00 104 06/17/17 00:00 98.0 100 18 114/62 (79) 96 06/16/17 20:00 98.3 95 18 158/90 (112) 97 06/16/17 20:00 93 06/16/17 16:05 98.9 92 20 140/89 (106) 96 06/16/17 16:00 86 06/16/17 12:05 98.7 106 21 158/88 (111) 95 I/O 06/16/17 06/16/17 06/16/17 06/17/17 06/17/17 06/17/17 07:00 15:00 23:00 07:00 15:00 23:00 Intake Total 1090 ml 720 ml 1102 ml Output Total 200 ml Balance 890 ml 720 ml 1102 ml Intake Oral 0 ml 720 ml 200 ml IV Total 1090 ml 902 ml Output Urine Total 200 ml # Voids 4 5 # Bowel Movements 0 1 1 (Jagdish Monroy MD) Result Diagram: 06/16/17 0548 06/17/17 0626 Imaging Last Impressions Head CT 06/15/17 0000 Signed Impressions: Service Date/Time: May 10:40 - CONCLUSION: Stable CT scan of the brain compared to the prior examination. No acute intracranial hemorrhage. Glenroy Brown MD Chest X-Ray 06/15/17 0000 Signed Impressions: Service Date/Time: May 09:03 - CONCLUSION: No acute disease. No significant change has occurred. Nomi Tyson MD Objective Remarks Gen: WDWN, NAD Lungs: Normal rate and effort, diffuse expiratory wheezes bilaterally CV: NRRR, normal S1/S2, no murmur Abd: Soft, NDNT MSK: No edema of BLE Medications and IVs Current Medications Medications (Trade) Dose Ordered Sig/[place] Route Start Time Stop Time Status Last Admin (NS Flush) 2 ml UNSCH PRN IV FLUSH 06/15/17 14:00 (NS Flush) 2 ml BID IV FLUSH 06/15/17 21:00 06/16/17 20:36 (Tylenol) 650 mg Q4H PRN PO 06/15/17 14:00 (Lovenox Inj) 40 mg Q24H SQ 06/15/17 16:00 06/16/17 15:34 (Narcan Inj) 0.4 mg UNSCH PRN IV PUSH 06/15/17 14:00 (Ban-Colace) 1 tab BID PO 06/15/17 21:00 06/17/17 09:09 (Milk Of Magnesia Liq) 30 ml Q12H PRN PO 06/15/17 14:00 (Senokot) 17.2 mg Q12H PRN PO 06/15/17 14:00 (Dulcolax Supp) 10 mg DAILY PRN RECTAL 06/15/17 14:00 (Lactulose Liq) 30 ml DAILY PRN PO 06/15/17 14:00 Ceftriaxone Sodium 1000 mg/ Sodium Chloride 100 ml @ 200 mls/hr Q24H IV 06/16/17 10:00 06/17/17 09:11 (Evista) 60 mg DAILY PO 06/17/17 09:00 06/17/17 09:09 (Effexor) 25 mg Q12H PO 06/16/17 14:00 06/17/17 01:23 (risperDAL) 4 mg Q12HR PO 06/16/17 21:00 06/17/17 09:09 (Pravachol) 40 mg DAILY PO 06/17/17 09:00 06/17/17 09:10 (Sodium Chloride) 1 gm BID PO 06/17/17 09:00 06/17/17 09:09 (Jagdish Monroy MD) A/P Assessment and Plan Mrs. Flores is a 82yo female presenting with frequent falls and hyponatremia. (Jagdish Monroy MD) Attending Attestation Patient seen and examined. Case reviewed and discussed with the resident team. Agree with plan of care as discussed with me and documented in the resident note. she wishes to go to the same SNF as her so will work on arranging this (Althea Alas MD) Problem List: (1) Hyponatremia ICD Codes: E87.1 - Hypo-osmolality and hyponatremia Status: Acute Plan: Acute on chronic problem; had been taking salt tabs for years per PCP but self-discontinued Sodium level upon admission was 114. This may be due to patient drinking water throughout the day. Patient not taking any medications that can cause hyponatremia. 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 Urine osmolality is 350. Urine sodium is high at 57. 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 This may be due to patient falling vs unknown seizure. CPK now in the 300s BUN/Cr continuing to be normal * Monitor renal function * IVF discontinued 06/17 (3) Elevated troponin ICD Codes: R74.8 - Abnormal levels of other serum enzymes Status: Resolved Plan: Troponin level 0.77 at admission. Patient not experiencing any chest pain currently or any angina symptoms in the past. Suspect this is from Rhabdo effecting her heart as her CK MB is elevated Item Value Date Time Troponin I 0.77 NG/ML *H 06/15/17 0915 Troponin I 0.97 NG/ML *H # 06/15/17 1421 Troponin I 0.48 NG/ML H # 06/15/17 2028 Troponin I 0.50 NG/ML H 06/16/17 0548 * Continue to monitor for any symptoms (4) Fall at home ICD Codes: W19.XXXA - Unspecified fall, initial encounter; Y92.099 - Unspecified place in other non-institutional residence as the place of occurrence of the external cause Status: Acute Plan: * PT & OT recommending rehab; CM assisting (5) UTI (urinary tract infection) ICD Codes: N39.0 - Urinary tract infection, site not specified Status: Acute Plan: UA on admission showed small leukocyte esterase, WBCs, and rare bacteria. UCx growing E coli * Continue Rocephin to complete 3 days (should be adequate treatment for uncomplicated cystitis in asymptomatic female) (6) FEN Status: Acute Plan: Fluids: PO only Electrolytes: monitor and replete as needed Nutrition: Regular diet DVT Prophylaxis: Early ambulation. Lovenox 40mg subQ q24hr GI Prophylaxis: None indicated at this time Pain management: Tylenol Dispo: To SNF pending correction of hyponatremia (Jagdish Monroy MD) Problem Qualifiers (1) Rhabdomyolysis: Qualified Codes: M62.82 - Rhabdomyolysis (2) Fall at home: Qualified Codes: W19.XXXA - Unspecified fall, initial encounter; Y92.099 - Unspecified place in other non-institutional residence as the place of occurrence of the external cause (3) UTI (urinary tract infection): Qualified Codes: N39.0 - Urinary tract infection, site not specified Jagdish Monroy MD Jun 17, 2017 12:06 Althea Alas MD Jun 20, 2017 16:47
[2017-06-17] MEDS: ENOXAPARIN SODIUM 40 MG/0.4 ML SYRINGE SQ SCH (16:00)
[2017-06-18] VITALS: BP 122/71; PULSE 99; RESP 17; TEMP 98.7; O2SAT 98
[2017-06-18] MEDS: VENLAFAXINE HCL 25 MG TAB PO SCH ×2 (02:00→13:44)
[2017-06-18 04:00] VITALS: BP 140/70; PULSE 125; RESP 17; TEMP 99.2; O2SAT 99
[2017-06-18 07:50] LABS: BICARBONATE 26.6 MEQ/L (21.0-32.0); CALCIUM 8.2 MG/DL (8.5-10.1); CREATININE 0.52 MG/DL (0.50-1.00); MAGNESIUM 1.7 MG/DL (1.5-2.5)
[2017-06-18 08:05] VITALS: BP 150/67; PULSE 99; RESP 20; TEMP 98.8; O2SAT 95
[2017-06-18] MEDS: DOCUSATE SODIUM 50 MG/SENNA 8.6 MG TAB PO SCH (09:00)
[2017-06-18] MEDS ORDERED: SODI1TAB PO (09:31)
[2017-06-18] MEDS ORDERED: RISP4TAB2 PO (09:31)
[2017-06-18] MEDS ORDERED: VENL25TA PO (09:31)
[2017-06-18] MEDS ORDERED: RALO1TAB PO (09:31)
[2017-06-18] MEDS ORDERED: SIMV20TA PO (09:31)
[2017-06-18] MEDS ORDERED: ASPI-516 CHEW (09:31)
--- NOTE | 2017-06-18 09:33 | HHI.DCPOC ---
Discharge Care Plan Diagnosis: (1) UTI (urinary tract infection) (2) Hyponatremia (3) Rhabdomyolysis (4) Elevated troponin Goals to Promote Your Health * To prevent worsening of your condition and complications * To maintain your health at the optimal level Directions to Meet Your Goals Take your sodium chloride pills 1 gram twice a day Take your medications as prescribed Follow your dietary instruction Follow activity as directed Keep your appointments as scheduled Take your immunizations and boosters as scheduled If your symptoms worsen call your PCP, if no PCP go to Urgent Care Center or Emergency Room Smoking is Dangerous to Your Health. Avoid second hand smoke Call the 24-hour hour crisis hotline for domestic abuse at Yulisa Gallardo MD R1 Jun 18, 2017 09:33
--- NOTE | 2017-06-18 09:39 | HHI.FPPN ---
Subjective Remarks Ms Flores concerned about leaving the hospital with it being cold outside. When explained that she will not have to be "stuck outside" she agreed to d/c to a SNF today for rehab. She is eating well and feels better. She has no other complaints. Objective Vitals Vital Signs Date Time Temp Pulse Resp B/P (MAP) Pulse Ox O2 Delivery O2 Flow Rate FiO2 06/18/17 08:05 98.8 99 20 150/67 (94) 95 06/18/17 04:00 99.2 125 17 140/70 (93) 99 06/18/17 00:00 98.7 99 17 122/71 (88) 98 06/17/17 20:00 98.9 96 17 125/67 (86) 97 06/17/17 16:03 98.7 102 21 125/62 (83) 97 06/17/17 16:00 110 06/17/17 12:04 98.3 98 21 120/79 (93) 97 06/17/17 12:00 97 I/O 06/17/17 06/17/17 06/17/17 06/18/17 06/18/17 06/18/17 07:00 15:00 23:00 07:00 15:00 23:00 Intake Total 1102 ml 960 ml 240 ml Balance 1102 ml 960 ml 240 ml Intake Oral 200 ml 960 ml 240 ml IV Total 902 ml # Voids 5 5 2 # Bowel Movements 1 1 0 Result Diagram: 06/16/17 0548 06/18/17 0635 Objective Remarks Gen: WDWN, NAD Lungs: Normal rate and effort, diffuse end expiratory wheezes bilaterally possibly upper airway CV: NRRR, normal S1/S2, no murmur Abd: Soft, NDNT MSK: No edema of BLE Urinary Catheter: No Vascular Central Line Catheter: No A/P Assessment and Plan Mrs. Flores is a 82yo female presenting with frequent falls and hyponatremia. Problem List: (1) Hyponatremia ICD Codes: E87.1 - Hypo-osmolality and hyponatremia Status: Acute Plan: Acute on chronic problem; had been taking salt tabs for years per PCP but self-discontinued Sodium level upon admission was 114. This may be due to patient drinking water throughout the day. Patient not taking any medications that can cause hyponatremia. 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 Urine osmolality is 350. Urine sodium is high at 57. 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 she can see her regular Dr Philly randle when she leaves her SNF (2) Rhabdomyolysis ICD Codes: M62.82 - Rhabdomyolysis Status: Resolved Plan: CPK at admission was 1263. This may be due to patient falling vs unknown seizure. CPK now in the 300s BUN/Cr continuing to be normal * renal function stable * IVF discontinued 06/17 (3) Elevated troponin ICD Codes: R74.8 - Abnormal levels of other serum enzymes Status: Resolved Plan: Troponin level 0.77 at admission. Patient not experiencing any chest pain currently or any angina symptoms in the past. Suspect this is from Rhabdo effecting her heart as her CK MB is elevated Item Value Date Time Troponin I 0.77 NG/ML *H 06/15/17 0915 Troponin I 0.97 NG/ML *H # 06/15/17 1421 Troponin I 0.48 NG/ML H # 06/15/17 2028 Troponin I 0.50 NG/ML H 06/16/17 0548 * Continue to monitor for any symptoms (4) Fall at home ICD Codes: W19.XXXA - Unspecified fall, initial encounter; Y92.099 - Unspecified place in other non-institutional residence as the place of occurrence of the external cause Status: Acute Plan: * PT & OT recommending rehab; CM assisting to [facility] today (5) UTI (urinary tract infection) ICD Codes: N39.0 - Urinary tract infection, site not specified Status: Acute Plan: UA on admission showed small leukocyte esterase, WBCs, and rare bacteria. UCx growing E coli * Continued Rocephin to complete 3 days (should be adequate treatment for uncomplicated cystitis in asymptomatic female) (6) FEN Status: Acute Plan: Fluids: PO only Electrolytes: monitor and replete as needed Nutrition: Regular diet DVT Prophylaxis: Early ambulation. Lovenox 40mg subQ q24hr GI Prophylaxis: None indicated at this time Pain management: Tylenol Dispo: To SNF today Problem Qualifiers (1) Rhabdomyolysis: Qualified Codes: M62.82 - Rhabdomyolysis (2) Fall at home: Qualified Codes: W19.XXXA - Unspecified fall, initial encounter; Y92.099 - Unspecified place in other non-institutional residence as the place of occurrence of the external cause (3) UTI (urinary tract infection): Qualified Codes: N39.0 - Urinary tract infection, site not specified Althea Alas MD Jun 18, 2017 09:39
[2017-06-18] MEDS: PRAVASTATIN SOD 40 MG TAB PO SCH (10:43)
[2017-06-18] MEDS: SODIUM CHLORIDE 1 GRAM TAB PO SCH (10:43)
[2017-06-18] MEDS: RALOXIFENE HCL 60 MG TAB PO SCH (10:43)
[2017-06-18] MEDS: cefTRIAXone INJ 1,000 MG in SODIUM CHLORIDE 0.9% INJ 100 ML IV SCH (10:44)
[2017-06-18] MEDS: risperiDONE 1 MG TAB PO SCH (10:44)
[2017-06-18] MEDS: SODIUM CHLORIDE 0.9% FLUSH 10 ML FLUSH IV FLUSH SCH (10:45)
[2017-06-18 12:04] VITALS: BP 157/64; PULSE 97; RESP 21; TEMP 98.6; O2SAT 97
--- NOTE | 2017-06-22 15:22 | HHI.DS ---
Discharge Summary Admission Date Jun 15, 2017 at 13:02 Discharge Date: Jun 18, 2017 Admitting Diagnosis hyponatremia, rhabdomyolysis, elevated troponin, frequent falls (1) Hyponatremia Plan: Acute on chronic problem; had been taking salt tabs for years per PCP but self-discontinued Sodium level upon admission was 114. This may be due to patient drinking water throughout the day. Patient not taking any medications that can cause hyponatremia. 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 Urine osmolality is 350. Urine sodium is high at 57. 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 she can see her regular Dr Philly randle when she leaves her SNF ICD Codes: E87.1 - Hypo-osmolality and hyponatremia Status: Acute (2) Rhabdomyolysis Plan: CPK at admission was 1263. This may be due to patient falling vs unknown seizure. CPK now in the 300s BUN/Cr continuing to be normal * renal function stable * IVF discontinued 06/17 ICD Codes: M62.82 - Rhabdomyolysis Status: Resolved (3) Elevated troponin Plan: Troponin level 0.77 at admission. Patient not experiencing any chest pain currently or any angina symptoms in the past. Suspect this is from Rhabdo effecting her heart as her CK MB is elevated Item Value Date Time Troponin I 0.77 NG/ML *H 06/15/17 0915 Troponin I 0.97 NG/ML *H # 06/15/17 1421 Troponin I 0.48 NG/ML H # 06/15/17 2028 Troponin I 0.50 NG/ML H 06/16/17 0548 * Continue to monitor for any symptoms ICD Codes: R74.8 - Abnormal levels of other serum enzymes Status: Resolved (4) Fall at home Plan: * PT & OT recommending rehab; CM assisting to [facility] today ICD Codes: W19.XXXA - Unspecified fall, initial encounter; Y92.099 - Unspecified place in other non-institutional residence as the place of occurrence of the external cause Status: Acute (5) UTI (urinary tract infection) Plan: UA on admission showed small leukocyte esterase, WBCs, and rare bacteria. UCx growing E coli * Continued Rocephin to complete 3 days (should be adequate treatment for uncomplicated cystitis in asymptomatic female) ICD Codes: N39.0 - Urinary tract infection, site not specified Status: Acute (6) FEN Plan: Fluids: PO only Electrolytes: monitor and replete as needed Nutrition: Regular diet DVT Prophylaxis: Early ambulation. Lovenox 40mg subQ q24hr GI Prophylaxis: None indicated at this time Pain management: Tylenol Dispo: To SNF today Status: Acute Brief History Mrs. Flores is a 82-year-old female with past medical history of depression and hyperlipidemia and per report schizophrenia, presenting to the ED by [facility] after falling at her home. She states that she has been falling for about a month. She falls every time she gets up from bed to go to the bathroom. She is unsure of how many times a day this happens. She says every time she falls she hits her head. The last time she hit her head was the day of admission , she did not lose consciousness, no bruising or bleeding noted by patient. She hit her head on her night table on the right posterior side. She states that she was on the floor for about 10 minutes. Her disabled helped her to get up though he had trouble doing so. She says she usually has dizziness when she gets up from sitting to standing. She states that she stays in bed all day because she is unable to walk. She uses a walker, but it is not near her bed so she usually falls before she actually gets to her walker. She stated that she drinks a glass of water every hour. However, when asked again a little later she says she only drinks 8 glasses of water a day and then changed her answer back to every hour. She states that she is always thirsty. She used to take salt pills, 2 a day 1 gram each. However she stopped taking them a month ago. She sees Dr. Philly Randle for PCP. She is a bit of a difficult historian but did state today that she took salt pills for about 10 years. Her Na was checked multiple times overnight and initially jumped from 114 to 126 at which time she was given free water. Subsequently, he sodium decreased and was in the 117 to 118 range. Her labs of 126 may be in error as their were other anomalies as well with them compared to the other subsequent labs. Today she was more forthcoming about her meds and stated she was taking her thyroid meds and other Psychiatric meds including Risperdal up to 4-5 times a day at unknown dose. Plus she admitted taking another Psychiatric med she did not know but was able to provide her Pharmacy [facility] so her information can be checked. CBC/BMP: 06/18/17 0635 PE at Discharge Gen: WDWN, NAD Lungs: Normal rate and effort, diffuse end expiratory wheezes bilaterally possibly upper airway CV: NRRR, normal S1/S2, no murmur Abd: Soft, NDNT MSK: No edema of BLE Hospital Course Mrs. Flores is a 82yo female presenting to the ED after a fall. She was found to be hyponatremic to 114 and started on fluid restriction. She was also found to be in rhabdomyolysis so was placed on hypertonic saline. Head CT and CXR were normal. Upon talking with her PCP's office and her pharmacy it was found that she has been taking NaCl tablets for a while which she admitted to having stopped taking last month. She was discharged on her salt tablets to a rehab center on Jun 18. Pt Condition on Discharge: Stable Discharge Disposition: Discharge to SNF Discharge Instructions DIET: Follow Instructions for: As Tolerated, No Restrictions Activities you can perform: Regular-No Restrictions Follow up Referrals: PCP Follow-up - 1 Week New Orders: BASIC METABOLIC PROF - 1 Week New Medications: Sodium Chloride (Sodium Chloride) 1 Gram Tab 1 GM PO BID, #60 TAB Continued Medications: Aspirin (Aspirin) 81 Mg Chew 81 MG CHEW DAILY, #30 TAB 0 Refills (This prescription has been renewed) Raloxifene (Raloxifene) 60 Mg Tab 60 MG PO DAILY for Chemotherapy Management, #30 TAB 0 Refills (This prescription has been renewed) Risperidone (Risperidone) 4 Mg Tab 4 MG PO Q12HR, #60 TAB 0 Refills (This prescription has been renewed) Simvastatin (Simvastatin) 20 Mg Tab 20 MG PO DAILY for Cholesterol Management, #30 TAB 0 Refills (This prescription has been renewed) Venlafaxine (Effexor) 25 Mg Tab 25 MG PO Q12H, #60 TAB 0 Refills (This prescription has been renewed) Yulisa Gallardo MD R1 Jun 22, 2017 15:22
== END 2017-06-18 17:28 | DRG 641 ==
LOC: NEPE 08:27 → NEDA 13:02 → N04B 14:42
PROVIDERS: ADMIT Family Medicine; ATTEND Family Medicine
DX: E87.1 Hypo-osmolality and hyponatremia (principal); M62.82 Rhabdomyolysis; N39.0 Urinary tract infection, site not specified; B96.20 Unspecified Escherichia coli [E. coli] as the cause of diseases classified elsewhere; E87.6 Hypokalemia; R74.8 Abnormal levels of other serum enzymes; W19.XXXA Unspecified fall, initial encounter; Y92.009 Unspecified place in unspecified non-institutional (private) residence as the place of occurrence of the external cause; Z91.81 History of falling; Z87.891 Personal history of nicotine dependence
CPT/HCPCS: 70450; 71010; 80048; 80053; 81001; 82533; 82550; 82552; 83735; 83930; 83935; 84100; 84155; 84295; 84300; 84443; 84484; 85025; 85610; 85730; 87040; 87077; 87086; 87186; 87804; 93005; 96365; J0696; J1650; J7030; J7060